=== PATIENT | male | born 1975 | race Caucasian/White ===

== ENCOUNTER 2017-09-08 10:03 | Emergency (ER) | payer OTHER, BC ==
--- NOTE | 2017-09-08 10:15 | EDM.PDOC ---
ED HPI GENERAL MEDICAL PROBLEM - General Chief Complaint: Upper Extremity Injury/Pain Stated Complaint: FELL OFF LADDER - 5 FT Time Seen by Provider: 09/08/17 10:15 - History of Present Illness INITIAL COMMENTS - FREE TEXT/NARRATIVE: 41-year-old male presents emergency room with a right forearm injury. Shortly before arrival the patient fell off a ladder landing on his right forearm. He has significant discomfort around his wrist. Patient denies any other injuries associated with this fall. Patient has chronic back problems but does not believe that this is worsened because of a fall. Patient denies any other symptoms at this point Right Wrist Pain Score (Numeric/FACES): 8 - Related Data Allergies Allergy/AdvReac Type Severity Reaction Status Date / Time No Known Allergies Allergy Verified 09/08/17 10:06 Home Meds: Home Meds Baclofen [Baclofen] 5 mg PO DAILY 09/08/17 [History] Celebrex. 09/08/17 [History] Hydrocodone/Acetaminophen [[place] 5-325 Tablet] 1 - 2 each PO Q6H PRN #30 tablet 09/08/17 [Rx] Past Medical History - Past Health History Medical/Surgical History: Denies Medical/Surgical History - Past Surgical History GI Surgical History: Reports: Appendectomy Social & Family History - Tobacco Use Smoking Status *Q: Current Every Day Smoker Years of Tobacco use: 15 Packs/Tins Daily: 1 - Alcohol Use Days Per Week of Alcohol Use: 0 - Recreational Drug Use Recreational Drug Use: No Review of Systems - Review of Systems Review Of Systems: See Below Constitutional: Reports: No Symptoms Eyes: Reports: No Symptoms Ears: Reports: No Symptoms Nose: Reports: No Symptoms Mouth/Throat: Reports: No Symptoms Respiratory: Reports: No Symptoms Cardiovascular: Reports: No Symptoms GI/Abdominal: Reports: No Symptoms Musculoskeletal: Reports: Other (Right wrist pain) Skin: Reports: No Symptoms Neurological: Reports: No Symptoms ED EXAM, GENERAL - Physical Exam Exam: See Below Exam Limited By: No Limitations General Appearance: Alert, No Apparent Distress Eye Exam: Bilateral Eye: Normal Inspection Ears: Normal External Exam, Normal Canal, Hearing Grossly Normal, Normal TMs Nose: Normal Inspection, Normal Mucosa, No Blood Throat/Mouth: Normal Inspection, Normal Lips, Normal Gums, Normal Oropharynx, Normal Voice, No Airway Compromise Head: Atraumatic, Normocephalic Neck: Normal Inspection, Supple, Non-Tender, Full Range of Motion. No: Limited Range of Motion, Lymphadenopathy (L), Lymphadenopathy (R), Tender Lateral, Tender Midline Respiratory/Chest: No Respiratory Distress, Lungs Clear, Normal Breath Sounds Cardiovascular: Regular Rate, Rhythm, No Edema, No Murmur GI/Abdominal: Normal Bowel Sounds, Soft, Non-Tender, Pelvis Stable Back Exam: Normal Inspection. No: CVA Tenderness (L), CVA Tenderness (R), Muscle Spasm, Vertebral Tenderness Extremities: Normal Inspection, Normal Range of Motion, Non-Tender, No Pedal Edema, Other (His right forearm has limited range of motion due to the right wrist injury remaining extremities are normal examination of right wrist shows no obvious dorsiflexion deformity neurovascular status of the hand is normal patient states it feels mildly numb compared to normal) Neurological: Alert, Oriented, Normal Cognition, No Motor/Sensory Deficits Psychiatric: Normal Affect, Normal Mood Skin Exam: Warm, Dry, Intact Lymphatic: No Adenopathy Course - Vital Signs Last Recorded V/S: Last Vital Signs Temp 37.0 C 09/08/17 12:18 Pulse 76 09/08/17 12:18 Resp 14 09/08/17 12:18 BP 152/91 H 09/08/17 12:18 Pulse Ox 96 09/08/17 12:18 - Orders/Labs/Meds Orders: Active Orders 24 hr Category Date Time Status Notify Provider [RC] ASDIRECTED Care 09/08/17 12:18 Active Oxygen Therapy [RC] ASDIRECTED Care 09/08/17 12:18 Active Pulse Oximetry [RC] ASDIRECTED Care 09/08/17 12:18 Active Vital Signs [RC] Q1HR Care 09/08/17 12:18 Active Meds: Medications Discontinued Medications Generic Name Dose Route Start Last Admin Trade Name Freq PRN Reason Stop Dose Admin Hydrocodone Bitart/Acetaminophen 1 tab 09/08/17 13:02 09/08/17 13:09 [place] 325-5 Mg PO 09/08/17 13:03 1 tab ONETIME ONE Administration Fentanyl 50 mcg 09/08/17 10:20 09/08/17 10:27 Sublimaze IVPUSH 09/08/17 10:21 50 mcg ONETIME ONE Administration Fentanyl Confirm 09/08/17 12:06 Sublimaze Administered 09/08/17 12:07 Dose 100 mcg .ROUTE .STK-MED ONE Lidocaine HCl Confirm 09/08/17 11:09 Xylocaine-Mpf 1% Administered 09/08/17 11:10 Dose 4 mls @ as directed .ROUTE .STK-MED ONE Lactated Ringer's Confirm 09/08/17 12:35 Ringers, Lactated Administered 09/08/17 12:36 Dose 1,000 mls @ as directed .ROUTE .STK-MED ONE Metoclopramide HCl Confirm 09/08/17 12:10 Reglan Administered 09/08/17 12:11 Dose 10 mg .ROUTE .STK-MED ONE Midazolam HCl Confirm 09/08/17 12:05 Versed 1 Mg/Ml Administered 09/08/17 12:06 Dose 2 mg .ROUTE .STK-MED ONE Propofol Confirm 09/08/17 11:10 Diprivan 20 Ml Administered 09/08/17 11:11 Dose 200 mg .ROUTE .STK-MED ONE - Re-Assessments/Exams Free Text/Narrative Re-Assessment/Exam: 09/08/17 10:54 X-rays in case reviewed with Dr. Dempsey, he believes this can be reduced emergency room. We will have things ready and attempt this. 09/08/17 13:37 Dr. Dempsey came in after anesthesia was ready. Assisted with procedural sedation satisfactory alignment was achieved and he was splinted in position post reduction films showed good anatomical alignment. Departure - Departure Time of Disposition: 13:39 Disposition: Home, Self-Care 01 Clinical Impression: Fracture, Colles, right, closed - Discharge Information Prescriptions: Hydrocodone/Acetaminophen [[place] 5-325 Tablet] 1 - 2 each PO Q6H PRN #30 tablet PRN Reason: Pain Referrals: PCP,None [Primary Care Provider] - Kendrick Dempsey MD [Physician] - Forms: ED Department Discharge Additional Instructions: Return to emergency room if any questions problems worsening symptoms. Follow up Dr. Dempsey's office Monday of next week September 15. Use the sling all the time. Return to the emergency room for recheck if you develop numbness or worsening pain in your arm. You been given [place]. Use as needed for pain if ibuprofen does not help. Take one or 2 every 6 hours. Allow 12 hours after using this medication before driving or returning to work. You received some very strong medications here in the emergency room do not drive for the next 24 hours.
[2017-09-08] MEDS ORDERED: fentaNYL 100 MCG/2 ML SDV IVPUSH ONE (10:20)
--- NOTE | 2017-09-08 11:04 | PCM.PREANE ---
Preanesthetic Assessment - Anesthesia/Transfusion/Family Hx Anesthesia History: Prior Anesthesia Without Reaction Family History of Anesthesia Reaction: No Transfusion History: No Prior Transfusion(s) Intubation History: Unknown - Review of Systems General: No Symptoms Pulmonary: No Symptoms (smoker: 1pack per day times 15 years) Cardiovascular: No Symptoms Gastrointestinal: No Symptoms Neurological: No Symptoms (chronic back problems) Other: Reports: None - Physical Assessment NPO Status Date: 09/08/17 NPO Status Time: 10:00 (coffee) Pulse: 76 O2 Sat by Pulse Oximetry: 100 Respiratory Rate: 20 Blood Pressure: 146/93 Temperature: 36.7 C Vital Signs: Last Vital Signs Temp 36.7 C 09/08/17 10:08 Pulse 76 09/08/17 10:08 Resp BP 146/93 H 09/08/17 10:08 Pulse Ox 100 09/08/17 10:08 Height: 1.78 m Weight: 72.575 kg ASA Class: 2E Mental Status: Alert & Oriented x3 Airway Class: Mallampati = 2 Dentition: Reports: Dentures Thyro-Mental Finger Breadths: 3 Mouth Opening Finger Breadths: 3 ROM/Head Extension: Full Lungs: Clear to Auscultation, Normal Respiratory Effort Cardiovascular: Regular Rate, Regular Rhythm, No Murmurs - Allergies Allergies/Adverse Reactions: Allergies Allergy/AdvReac Type Severity Reaction Status Date / Time No Known Allergies Allergy Verified 09/08/17 10:06 - Anesthesia Plan Pre-Op Medication Ordered: None - Acknowledgements Anesthesia Type Planned: MAC Pt an Appropriate Candidate for the Planned Anesthesia: Yes Alternatives and Risks of Anesthesia Discussed w Pt/Guardian: Yes Pt/Guardian Understands and Agrees with Anesthesia Plan: Yes PreAnesthesia Questionnaire - Past Health History Medical/Surgical History: Denies Medical/Surgical History - Past Surgical History GI Surgical History: Reports: Appendectomy - SUBSTANCE USE Smoking Status *Q: Current Every Day Smoker Tobacco Use Within Last Twelve Months: Cigarettes Days Per Week of Alcohol Use: 0 Recreational Drug Use History: No - HOME MEDS Home Medications: Home Meds Baclofen [Baclofen] 5 mg PO DAILY 09/08/17 [History] Celebrex. 09/08/17 [History] - CURRENT (IN HOUSE) MEDS Current Meds: Current Medications Discontinued Medications Fentanyl (Sublimaze) 50 mcg IVPUSH ONETIME ONE Stop: 09/08/17 10:21 Last Admin: 09/08/17 10:27 Dose: 50 mcg
[2017-09-08] MEDS ORDERED: Lidocaine 1% 4 ML ONE (11:09)
[2017-09-08] MEDS ORDERED: Propofol 200 MG/20 ML SDV ONE (11:10)
--- NOTE | 2017-09-08 11:12 | CR ---
Right hand: Three views of the right hand were obtained. Comparison: No previous study. Distal radial fracture is seen with posterior impaction. Joint spaces within the hand are preserved. No additional fracture or other bony abnormality is appreciated. Impression: 1. Distal radial fracture as noted previously. 2. Nothing acute is seen within the right hand. Diagnostic code #2
--- NOTE | 2017-09-08 11:13 | CR ---
Right forearm: Two views of the right forearm were obtained. Slightly comminuted distal radial fracture is seen. Posterior impaction is seen with dorsal tilt of the distal radial articular margin. Distal ulna appears intact. Soft tissue swelling is seen. No additional abnormality is seen within the forearm. Impression: 1. Distal radial fracture with posterior impaction. 2. Soft tissue swelling. Diagnostic code #3
[2017-09-08] MEDS ORDERED: Midazolam 1 MG/ML 2 ML SDV ONE (12:05)
[2017-09-08] MEDS ORDERED: fentaNYL 100 MCG/2 ML SDV ONE (12:06)
[2017-09-08] MEDS ORDERED: Metoclopramide 10 MG/2 ML SDV ONE (12:10)
--- NOTE | 2017-09-08 12:16 | PCM48HPAN ---
Post Anesthesia Note - EVALUATION WITHIN 48HRS OF ANESTHETIC Vital Signs in Normal Range: Yes Patient Participated in Evaluation: Yes Respiratory Function Stable: Yes Airway Patent: Yes Cardiovascular Function Stable: Yes Hydration Status Stable: Yes Pain Control Satisfactory: Yes Nausea and Vomiting Control Satisfactory: Yes Mental Status Recovered: Yes
[2017-09-08 12:30] VITALS: BP 152/91
[2017-09-08] MEDS ORDERED: Lactated Ringers 1,000 ML ONE (12:35)
[2017-09-08] MEDS ORDERED: Acetaminophen/HYDROcodone 325-5 MG Tab PO ONE (13:02)
--- NOTE | 2017-09-08 13:45 | CR ---
Right wrist: Two views of the right wrist were obtained. Comparison: Prior right wrist exam performed earlier on the same day (10:26 AM). Previously impacted radial fracture shows correction of alignment. Alignment currently appears near anatomic. Plaster cast or splint is in place. No additional abnormality is seen through the plaster splint or cast. Impression: 1. Reduction of previous fracture within the distal radius. Placement of plaster splint or cast. Diagnostic code #2
--- NOTE | 2017-11-07 09:24 | OR ---
DATE OF OPERATION: 09/08/2017 SURGEON: Kendrick Dempsey MD OPERATION PERFORMED: Closed reduction with splinting of right distal radial extra-articular fracture. PREOPERATIVE DIAGNOSIS: Right distal radius extra-articular fracture. POSTOPERATIVE DIAGNOSIS: Right distal radius extra-articular fracture. ANESTHESIA: Conscious sedation. ANESTHESIOLOGIST: Serena Bucio CRNA. STEWARD/STEWARDESS THIRD CLASS: None. COMPLICATIONS: None. CONDITION: Stable. DESCRIPTION OF PROCEDURE: The patient was identified in the Trauma Hand, where proper site was marked and identified. Informed consent was obtained. At this time, under conscious sedation, a closed reduction maneuver was done to the right distal radius with gross anatomic alignment. The patient subsequently had a well-padded sugar-tong splint applied and three-point molding was held until the cast was hardened right until the splint was hardened. At this time, postoperative radiographs showed a near anatomic reduction of the previously noted fracture. The patient was given a sling and told to follow up in roughly 1 weeks' time. ESTIMATED BLOOD LOSS: N/A MMODAL /[id number] [facility] SYSTEMCharlette
--- NOTE | 2017-11-07 09:31 | HP ---
DATE OF ADMISSION: 09/08/2017 HISTORY OF PRESENT ILLNESS: This is a 41-year-old [id number] male, who fell off a ladder this evening and landed on his right wrist. The patient had significant right wrist deformity and pain and subsequently sent to the emergency department. The patient denies any previous pain or injury to the right upper extremity before this. The patient has been on narcotics for other issues including other pain in the past. The patient denies any medical or surgical history other than appendectomy. The patient is a current smoker. He is right-hand dominant. 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 REVIEW OF SYSTEMS: Please see the emergency department review of systems. PHYSICAL EXAMINATION: GENERAL: Alert, in no acute distress. VITAL SIGNS: Stable, afebrile. Alert. The patient is in moderate distress secondary to right wrist pain. EXTREMITIES: There is visible deformity of the right wrist. The patient has no tenderness to palpation about the right elbow. He has full elbow flexion and extension. He does have positive crepitus both right wrist. He is able to flex and extend the IP joint of thumb, abduct and adduct fingers. He does have difficulty with opposition secondary to right wrist pain. He is neurovascularly intact to the radial and median nerve distribution with 2+ distal radial pulse. The patient has no tenderness to palpation of the right shoulder or clavicle. DIAGNOSTIC DATA: Radiographs reviewed showing a dorsally displaced Colles fracture of the right distal radius. ASSESSMENT: Right distal radial extra-articular fracture. PLAN: At this time, did discuss with the patient. At this time, I do believe that we can get it in anatomic alignment with just closed reduction. At this time, the risks benefits, complications, and alternatives were discussed with the patient and we will plan on conscious sedation with closed reduction of the right distal radius fracture with sugar-tong splinting. The patient will follow up in clinic to make sure that it has not displaced; if it is not, the patient will be placed in a long-arm cast. The patient is in agreement with this plan. MMODAL /[id number]
== END 2017-09-08 14:37 | disposition home or self-care (01) ==
LOC: JD.ED 10:03
DX: S52.531A Colles' fracture of right radius, initial encounter for closed fracture (principal); F17.210 Nicotine dependence, cigarettes, uncomplicated; Z79.899 Other long term (current) drug therapy; W11.XXXA Fall on and from ladder, initial encounter
CPT/HCPCS: 25605; 73090; 73100; 73130; 96374; 99284; A9270; J2250; J2765; J3010; J7120; 01810; 25565; 29125; J2704

== ENCOUNTER 2017-09-10 16:37 | Emergency (ER) | payer OTHER, BC ==
[2017-09-10 16:51] VITALS: BP 132/93
--- NOTE | 2017-09-10 18:04 | EDM.PDOC ---
ED HPI GENERAL MEDICAL PROBLEM - General Chief Complaint: Upper Extremity Injury/Pain Stated Complaint: RECHECK, STILL HAS PAIN FROM BROKEN WRIST Time Seen by Provider: 09/10/17 17:50 Source of Information: Reports: Patient History Limitations: Reports: No Limitations - History of Present Illness INITIAL COMMENTS - FREE TEXT/NARRATIVE: Patient is a 41-year-old male who presents to the ED complaining of right forearm pain. Patient states he fell from a ladder this past Monday and was evaluated in the ED with diagnosis of a Colles' fracture. This was reduced in the ER with plaster splint applied. Patient states over the course of the weekend the pain has remained constant non-manageable with the hydrocodone that was prescribed. He was instructed to take 2 tabs every 6 hours as needed for pain. He has not been able to sleep much. Has noticed swelling to his hand with no numbness or tingling present. Continues to have pain to the right wrist , forearm, and right shoulder. Has also has been taking ibuprofen on intermittent basis as well. Applied ice to the affected area maybe 3 times a day. Offers no additional complaints. Right Arm Pain Score (Numeric/FACES): 6 - Related Data Allergies Allergy/AdvReac Type Severity Reaction Status Date / Time No Known Allergies Allergy Verified 09/10/17 16:46 Home Meds: Home Meds Baclofen [Baclofen] 5 mg PO Q6H 09/08/17 [History] Celebrex. 1 cap PO Q6H 09/08/17 [History] Hydrocodone/Acetaminophen [[place] 5-325 Tablet] 1 - 2 each PO Q6H PRN #30 tablet 09/08/17 [Rx] Past Medical History - Past Health History Medical/Surgical History: Denies Medical/Surgical History - Past Surgical History GI Surgical History: Reports: Appendectomy Musculoskeletal Surgical History: Reports: Other (See Below) Other Musculoskeletal Surgeries/Procedures:: rt arm fracture--currently splinted Social & Family History - Family History Family Medical History: Noncontributory - Tobacco Use Smoking Status *Q: Current Every Day Smoker Years of Tobacco use: 23 Packs/Tins Daily: 0.5 - Caffeine Use Caffeine Use: Reports: Coffee - Alcohol Use Days Per Week of Alcohol Use: 0 - Recreational Drug Use Recreational Drug Use: No Review of Systems - Review of Systems Review Of Systems: ROS reveals no pertinent complaints other than HPI. ED EXAM, GENERAL - Physical Exam Exam: See Below Exam Limited By: No Limitations General Appearance: Alert, WD/WN, No Apparent Distress Ears: Hearing Grossly Normal Nose: Normal Inspection Throat/Mouth: Normal Voice, No Airway Compromise Neck: Normal Inspection, Supple Respiratory/Chest: No Respiratory Distress, No Accessory Muscle Use Cardiovascular: Normal Peripheral Pulses, Regular Rate, Rhythm Peripheral Pulses: 3+: Radial (R) Extremities: Other (Sugar tong plaster splint applied to the right wrist with Sudarshan wrap in place. Mild swelling to the hands in comparison to the left hand. No sensory deficits. Pain with movement of his fingers with decreased range of motion noted. No pain noted to the upper arm or shoulder.) Neurological: Alert, Oriented, CN II-XII Intact, Normal Cognition, No Motor/ Sensory Deficits Psychiatric: Normal Affect, Normal Mood Course - Vital Signs Last Recorded V/S: Last Vital Signs Temp 97.6 F 09/10/17 16:48 Pulse 88 09/10/17 16:48 Resp 14 09/10/17 16:48 BP 132/93 H 09/10/17 16:48 Pulse Ox 95 09/10/17 16:48 - Re-Assessments/Exams Free Text/Narrative Re-Assessment/Exam: 1755 Took the sudarshan wrap off and loosened the plaster splint. Will come back and evaluate see if this improves the patient's discomfort. If so Sudarshan wrap will be applied not as tight on initial placement. He has a follow-up with Dr. Dempsey this coming Monday. 09/10/17 19:06 Reassessment, patient states throbbing discomfort has resolved. Still has discomfort to his wrist where the fractures present. Of course will not be able to change that with fracture present. Reapplied the Sudarshan wrap with no sensory or motor deficits noted to the fingers different from initial admission to the ED. Patient will be discharged home with instructions as documented. Departure - Departure Time of Disposition: 19:07 Disposition: Home, Self-Care 01 Condition: Good Clinical Impression: Fracture of right wrist Qualifiers: Encounter type: initial encounter Fracture type: closed Qualified Code(s): S62.101A - Fracture of unspecified carpal bone, right wrist, initial encounter for closed fracture - Discharge Information Instructions: Wrist Fracture Treated With Immobilization, [id number], Pain Medicine Instructions, [id number] Referrals: Kendrick Dempsey MD [Primary Care Provider] - Forms: ED Department Discharge Additional Instructions: As discussed. Elevate the affected extremity when able to reduce any swelling and pain. Take hydrocodone one to 2 tabs every 6 hours as needed for severe pain. Suggest utilizing ibuprofen 600 mg every 6 hours as needed for pain as well. Apply ice to the affected area 4-6 times daily, 20 minutes in duration, do not place ice directly on the skin. Keep appointment with Dr. Dempsey as scheduled for this week. Return to ED for any new or worsening symptoms.
== END 2017-09-10 19:17 | disposition home or self-care (01) ==
LOC: SUPCPDRO 16:37 → JD.ED 16:37
DX: S52.531A Colles' fracture of right radius, initial encounter for closed fracture (principal); F17.210 Nicotine dependence, cigarettes, uncomplicated; W11.XXXA Fall on and from ladder, initial encounter
CPT/HCPCS: 99283

== ENCOUNTER 2017-11-03 11:24 | Emergency (ER) | payer BC, OTHER ==
[2017-11-03 11:37] VITALS: BP 135/95
--- NOTE | 2017-11-03 11:45 | EDM.PDOC ---
ED HPI GENERAL MEDICAL PROBLEM - General Chief Complaint: Upper Extremity Injury/Pain Stated Complaint: R ARM PAIN/SWOLLEN Time Seen by Provider: 11/03/17 11:40 Source of Information: Reports: Patient History Limitations: Reports: No Limitations - History of Present Illness INITIAL COMMENTS - FREE TEXT/NARRATIVE: 42-year-old male presents to the ED for evaluation of swelling wrist and hand right side. Patient reports she had a fractured distal radius treated conservatively in early September. On review of the notes he fell from a ladder about 5 feet onto his right wrist on September 08 with a resultant mild compression fracture of the distal radius. Alignment was felt to be good. He is being followed by orthopedic surgeon Dr. Dempsey. He reports that Worker's Compensation Board phone this morning and indicated that he stayed weeks into his injury and they're wondering when he will be ready to return to work. He states the hand and wrist remain very swollen and range of motion remains poor particularly with extension at the wrist abduction and abduction and flexion reduced from normal. Still having a significant amount of pain at the fracture site. He is wearing a splint on the wrist. On my initial assessment the hand is bluish in color simply because the splint is too tight. Onset Date: 09/01/17 (He believes has injury was around September 01.) Duration: Week(s): (Apparently it's been about 8 weeks since injury.) Location: Reports: Upper Extremity, Right (Right distal radius fracture. This is patient's history. I tried to review films but there are none available on the PACS system.) Quality: Reports: Ache, Throbbing, Other Severity: Moderate (Limited range of motion.) Improves with: Reports: None Worsens with: Reports: Movement Context: Reports: Trauma (Initially fell and fractured his distal radius.). Denies: Activity, Exercise, Lifting, Sick Contact Associated Symptoms: Denies: Confusion, Chest Pain, Cough, cough w sputum, Diaphoresis, Fever/Chills, Headaches, Loss of Appetite, Malaise, Nausea/Vomiting , Rash, Seizure, Shortness of Breath, Syncope Treatments FOOD PROCESSOR: Reports: Other (see below) (Celebrex.) Right Wrist Pain Score (Numeric/FACES): 5 - Related Data Allergies Allergy/AdvReac Type Severity Reaction Status Date / Time No Known Allergies Allergy Verified 11/03/17 11:37 Home Meds: Home Meds Celebrex. 1 cap PO Q6H 09/08/17 [History] Gabapentin [Neurontin] 100 mg PO BID #60 capsule 11/03/17 [Rx] oxyCODONE HCl/Acetaminophen [Percocet 5-325 mg Tablet] 1 - 2 each PO Q4H PRN # 20 tablet 11/03/17 [Rx] Past Medical History - Past Health History Medical/Surgical History: Denies Medical/Surgical History - Past Surgical History GI Surgical History: Reports: Appendectomy Musculoskeletal Surgical History: Reports: Other (See Below) Other Musculoskeletal Surgeries/Procedures:: rt arm fracture--currently splinted Social & Family History - Family History Family Medical History: Noncontributory - Tobacco Use Smoking Status *Q: Current Every Day Smoker Years of Tobacco use: 23 Packs/Tins Daily: 0.5 - Caffeine Use Caffeine Use: Reports: Coffee - Alcohol Use Days Per Week of Alcohol Use: 0 - Recreational Drug Use Recreational Drug Use: No - Living Situation & Occupation Living situation: Reports: Occupation: Employed (Currently off work due to fracture of his distal radius.) Review of Systems - Review of Systems Review Of Systems: See Below Constitutional: Denies: No Symptoms Eyes: Reports: No Symptoms Ears: Reports: No Symptoms Nose: Reports: No Symptoms Mouth/Throat: Reports: No Symptoms Respiratory: Reports: Cough Cardiovascular: Reports: No Symptoms (Occasional cough due to cigarette smoking. ) GI/Abdominal: Reports: No Symptoms Genitourinary: Reports: No Symptoms Musculoskeletal: Reports: Other (Wrist and hand pain right side 2 months) Skin: Reports: No Symptoms Neurological: Reports: No Symptoms Psychiatric: Reports: No Symptoms ED EXAM, GENERAL - Physical Exam Exam: See Below Exam Limited By: No Limitations General Appearance: Alert, WD/WN, Anxious, Mild Distress Peripheral Pulses: 3+: Brachial (R), Radial (L) Extremities: Other (Patient has a splint on his right hand and wrist that is obviously too tight. His hand is bluish in color due to poor venous drainage. The hand itself is twice as thick as normal due to edema from constriction of the blood vessels from the splint being too tight. He is usually followed by Dr. Dempsey but was unable to get into the clinic today. I have no x-rays on the PACS system on his wrist or hand. I will x-ray his hand and wrist today.) Course - Vital Signs Last Recorded V/S: Last Vital Signs Temp 37.1 C 11/03/17 11:33 Pulse 85 11/03/17 11:33 Resp 18 11/03/17 11:33 BP 135/95 H 11/03/17 11:33 Pulse Ox 98 11/03/17 11:33 - Orders/Labs/Meds Orders: Active Orders 24 hr Category Date Time Status Hand Comp Min 3V Rt [CR] Stat Exams 11/03/17 11:40 Taken Wrist Comp Min 3V Rt [CR] Stat Exams 11/03/17 11:41 Taken - Radiology Interpretation Free Text/Narrative:: 42-year-old male reports that he fell around the beginning of September and suffered a fracture of his distal right radius. He has been followed by Dr. Dempsey . Patient currently is in a short wrist splint which is too tight and causing venous compression and swelling of his dorsal hand and wrist. I will have x-rays of his hand and wrist carried out in the department as there are none in the PACS machine for me to be up to compare to. It is likely that his fractures healed but he does have limited flexion extension abduction and abduction at the wrist. This would be normal for being immobilized for 2 months. He reports Worker's Compensation Board is wondering when he might be able to return to work. He states at present he doesn't have range of motion and too much pain to return to work. Will assess his fracture for healing and suggest discontinuing the splint. Will refer to physiotherapy. - Re-Assessments/Exams Free Text/Narrative Re-Assessment/Exam: 11/03/17 12:38 x-rays of the right hand are normal with no fractures. X-rays of the wrist reveal a fracture through the distal aspect of the radius and medial radius with good position and alignment. Her lines are still easily visible. His hand is grossly swollen but this is secondary to the splint being applied to tightly. I therefore advised him for the most part to try and leave the splint off and try and get along without it so as to relieve the pressure on the venous system and the swelling will go down. Also to try keep his hand elevated at heart level as much as possible but not down by his side for the next 3-4 days until the swelling goes down. Noé in itself may be causing a lot of his throbbing pain. States it aches but not that it interferes with his ability to sleep. He has been going to physiotherapy basal been able to get him one time. It was canceled this last week so therefore is only gone once. He is going to seek alternative physiotherapy personnel. I did speak with Dr. Dempsey his orthopedic surgeon and he reviewed his x-rays and felt that they were coming along satisfactorily. I'm going to place the patient on gabapentin 100 mg twice daily and effort to relieve his pain and will give him a few Percocet tabs to take primarily at bedtime to alleviate pain so that he can sleep. He will he will follow-up with Dr. Dempsey next week in clinic as planned Departure - Departure Time of Disposition: 12:43 Disposition: Home, Self-Care 01 Condition: Fair Clinical Impression: Closed fracture of radius Qualifiers: Encounter type: subsequent encounter Radius location: distal Fracture morphology: Colles' Laterality: right Fracture healing: with routine healing Qualified Code(s): S52.531D - Colles' fracture of right radius, subsequent encounter for closed fracture with routine healing - Discharge Information Prescriptions: Gabapentin [Neurontin] 100 mg PO BID #60 capsule oxyCODONE HCl/Acetaminophen [Percocet 5-325 mg Tablet] 1 - 2 each PO Q4H PRN # 20 tablet PRN Reason: pain relief. Referrals: PCP,None [Primary Care Provider] - Forms: ED Department Discharge Additional Instructions: Evaluation the emergent today in regards to persistent pain post fracture distal right radius September 08. Presentation to the ED reveals marked swelling of the hand it is nearly 2 times thicker than normal with bluish discoloration. This is secondary to splint being too tight and compromising blood return to the heart from the hand. I blood is flowing and well but can't get out causing substantial swelling and discoloration. This is contributing to the throbbing pain in your hand and wrist. X-rays reveal that the fractures lines are still visible but there is evidence of healing and there is no change in position position of the fracture fragments is good. My suggestion is to try and go without the splint is much as possible and start to slowly regain range of motion of your wrist by movement and use. Since the pain is bad enough to keep you awaken night I will give you Percocet tablets one or 2 to be taken at bedtime to help sleep. Also suggest use of gabapentin 100 mg twice daily which will alleviate nerve pain in your wrist and hand. Take this first thing in the morning and one at bedtime. Follow-up with Dr. Dempsey next week as planned. - My Orders Last 24 Hours: My Active Orders 11/03/17 11:40 Hand Comp Min 3V Rt [CR] Stat 11/03/17 11:41 Wrist Comp Min 3V Rt [CR] Stat - Assessment/Plan Last 24 Hours: My Active Orders 11/03/17 11:40 Hand Comp Min 3V Rt [CR] Stat 11/03/17 11:41 Wrist Comp Min 3V Rt [CR] Stat
--- NOTE | 2017-11-03 14:15 | CR ---
Right hand: Four views of the right hand were obtained. Comparison: Prior wrist exam of 09/08/17. Fracture again seen within the distal radius. Fracture line is visible with mild endosteal callus. Joint spaces within the hand are maintained. No acute fracture or other bony abnormality is seen. Soft tissue swelling is noted. Impression: 1. Soft tissue swelling. 2. Fracture within the distal radius. Fracture line still visible with mild endosteal callus. 3. No additional abnormality is identified on right hand study. Diagnostic code #2
--- NOTE | 2017-11-03 14:15 | CR ---
Right wrist: Four views of the right wrist were obtained. Comparison: Prior wrist exam of 09/08/17. Distal radial fracture is noted. Fracture lines are still visible but slight endosteal callus is seen from prior exam. I do not see any definite acute fracture. Soft tissue swelling is noted. Impression: 1. Distal radial fracture showing mild endosteal callus with fracture line still visible. 2. No definite acute fracture is appreciated. Diagnostic code #2
== END 2017-11-03 13:17 | disposition home or self-care (01) ==
LOC: JD.ED 11:24
DX: S52.531D Colles' fracture of right radius, subsequent encounter for closed fracture with routine healing (principal); F17.210 Nicotine dependence, cigarettes, uncomplicated; W11.XXXD Fall on and from ladder, subsequent encounter
CPT/HCPCS: 29125; 73110-26-RT; 73110-RT; 73130-26-RT; 73130-RT; 99283-25

== ENCOUNTER 2017-12-14 08:28 | Day surgery (SDC) | payer OTHER ==
[~2017-12-14 08:28] MED LIST: Lactated Ringers 1,000 ML IV SCH; Lidocaine 1%/Sod Bicarbonate in NS 8.4% 1 ML Syringe IDERM PRN; Sodium Chloride 0.9% 10 ML Syringe FLUSH PRN
[2017-12-14] MEDS ORDERED: Bupivacaine 0.25% 10 ML SDV ONE (09:28)
[2017-12-14] MEDS ORDERED: Triamcinolone Acetonide 40 MG/ML 1 ML MDV ONE (09:28)
[2017-12-14] MEDS ORDERED: Propofol 200 MG/20 ML SDV ONE (09:39)
[2017-12-14] MEDS ORDERED: Midazolam 1 MG/ML 2 ML SDV ONE (09:39)
[2017-12-14] MEDS ORDERED: fentaNYL 100 MCG/2 ML SDV ONE (09:39)
[2017-12-14] MEDS ORDERED: Ketamine 500 mg/10 ML MDV ONE (09:40)
[2017-12-14] MEDS ORDERED: Lidocaine 1% 4 ML ONE (09:41)
[2017-12-14] MEDS ORDERED: Dexamethasone 4 MG/ML 5 ML MDV ONE (09:41)
--- NOTE | 2017-12-14 10:03 | PCM.PREANE ---
Preanesthetic Assessment - Procedure Proposed Procedure: Right wrist manipulation - Anesthesia/Transfusion/Family Hx Anesthesia History: Prior Anesthesia Without Reaction Family History of Anesthesia Reaction: No Transfusion History: No Prior Transfusion(s) Intubation History: Unknown Additional History: chronic low back pain - Review of Systems General: No Symptoms Pulmonary: No Symptoms Cardiovascular: No Symptoms Gastrointestinal: No Symptoms Neurological: No Symptoms Other: Reports: Depression - Physical Assessment NPO Status Date: 12/13/17 NPO Status Time: 22:30 O2 Sat by Pulse Oximetry: 98 Respiratory Rate: 16 Vital Signs: Last Vital Signs Temp 36.7 C 12/14/17 08:35 Pulse 86 12/14/17 08:35 Resp 16 12/14/17 08:35 BP 136/92 H 12/14/17 08:35 Pulse Ox 98 12/14/17 08:35 Height: 1.78 m Weight: 78.471 kg ASA Class: 2 Mental Status: Alert & Oriented x3 Airway Class: Mallampati = 1 Dentition: Reports: Normal Dentition Thyro-Mental Finger Breadths: 3 Mouth Opening Finger Breadths: 3 ROM/Head Extension: Full Lungs: Clear to Auscultation, Normal Respiratory Effort Cardiovascular: Regular Rate, Regular Rhythm - Allergies Allergies/Adverse Reactions: Allergies Allergy/AdvReac Type Severity Reaction Status Date / Time No Known Allergies Allergy Verified 12/13/17 13:14 - Blood Blood Available: No Product(s) Available: None - Anesthesia Plan Pre-Op Medication Ordered: None - Acknowledgements Anesthesia Type Planned: MAC Pt an Appropriate Candidate for the Planned Anesthesia: Yes Alternatives and Risks of Anesthesia Discussed w Pt/Guardian: Yes Pt/Guardian Understands and Agrees with Anesthesia Plan: Yes PreAnesthesia Questionnaire - Past Health History Medical/Surgical History: Denies Medical/Surgical History Cardiovascular History: Reports: None Respiratory History: Reports: None Gastrointestinal History: Reports: Other (See Below) Other Gastrointestinal History: exploratory abdominal surgery Genitourinary History: Reports: None CLIENT EXPERIENCE CONSULTANT History: Reports: None Musculoskeletal History: Reports: Back Pain, Chronic, Fracture Neurological History: Reports: None Psychiatric History: Reports: Depression Endocrine/Metabolic History: Reports: None Hematologic History: Reports: None Immunologic History: Reports: None Oncologic (Cancer) History: Reports: None Dermatologic History: Reports: None - Past Surgical History Head Surgeries/Procedures: Reports: None HEENT Surgical History: Reports: Oral Surgery Cardiovascular Surgical History: Reports: None Respiratory Surgical History: Reports: None GI Surgical History: Reports: Appendectomy Other GI Surgeries/Procedures: "Exploratory surgery" Female Surgical History: Reports: None Male Surgical History: Reports: None Endocrine Surgical History: Reports: None Neurological Surgical History: Reports: None Musculoskeletal Surgical History: Reports: Other (See Below) Other Musculoskeletal Surgeries/Procedures:: rt arm fracture--currently splinted Oncologic Surgical History: Reports: None - SUBSTANCE USE Smoking Status *Q: Current Every Day Smoker Tobacco Use Within Last Twelve Months: Cigarettes Days Per Week of Alcohol Use: 0 Recreational Drug Use History: No - HOME MEDS Home Medications: Home Meds Baclofen 10 mg PO TID PRN 12/13/17 [History] Celecoxib 200 mg PO DAILY 12/13/17 [History] Gabapentin [Gralise] 600 mg PO TID 12/13/17 [History] Sertraline [Zoloft] 100 mg PO DAILY 12/13/17 [History] Acetaminophen [Tylenol Extra Strength] 1 - 2 tab PO Q6H PRN #0 12/14/17 [Rx] Acetaminophen/HYDROcodone [Sidney 325-5 MG] 1 - 2 tab PO Q6H PRN #30 tablet 12/14 [Rx] Ibuprofen 1 - 3 tab PO Q6H PRN #0 12/14/17 [Rx] - CURRENT (IN HOUSE) MEDS Current Meds: Current Medications Lactated Ringer's (Ringers, Lactated) 1,000 mls @ 125 mls/hr IV ASDIRECTED TIFFANIE Last Admin: 12/14/17 08:45 Dose: 125 mls/hr Lidocaine/Sodium Bicarbonate (Buffered Lidocaine 1% In Ns 8.4%) 0.25 ml IDERM ONETIME PRN PRN Reason: Prior to IV Start Last Admin: 12/14/17 08:45 Dose: 0.25 ml Sodium Chloride (Saline Flush) 10 ml FLUSH ASDIRECTED PRN PRN Reason: Keep Vein Open Discontinued Medications Bupivacaine HCl (Sensorcaine-Mpf 0.25%) Confirm Administered Dose 10 ml .ROUTE .STK-MED ONE Stop: 12/14/17 09:29 Dexamethasone (Dexamethasone) Confirm Administered Dose 20 mg .ROUTE .STK-MED ONE Stop: 12/14/17 09:42 Fentanyl (Sublimaze) Confirm Administered Dose 100 mcg .ROUTE .STK-MED ONE Stop: 12/14/17 09:40 Lidocaine HCl (Xylocaine-Mpf 1%) Confirm Administered Dose 4 mls @ as directed .ROUTE .STK-MED ONE Stop: 12/14/17 09:42 Ketamine HCl (Ketalar) Confirm Administered Dose 500 mg .ROUTE .STK-MED ONE Stop: 12/14/17 09:41 Midazolam HCl (Versed 1 Mg/Ml) Confirm Administered Dose 2 mg .ROUTE .STK-MED ONE Stop: 12/14/17 09:40 Propofol (Diprivan 20 Ml) Confirm Administered Dose 200 mg .ROUTE .STK-MED ONE Stop: 12/14/17 09:40 Triamcinolone Acetonide (Kenalog-40) Confirm Administered Dose 40 mg .ROUTE .STK -MED ONE Stop: 12/14/17 09:29
--- NOTE | 2017-12-14 10:20 | PCM48HPAN ---
Post Anesthesia Note - EVALUATION WITHIN 48HRS OF ANESTHETIC Vital Signs in Normal Range: Yes Patient Participated in Evaluation: Yes Respiratory Function Stable: Yes Airway Patent: Yes Cardiovascular Function Stable: Yes Hydration Status Stable: Yes Pain Control Satisfactory: Yes Nausea and Vomiting Control Satisfactory: Yes Mental Status Recovered: Yes Pulse Rate: 85 SaO2: 96 Resp Rate: 16 Temperature: 36.8 C Blood Pressure: 148/98 - COMMENTS/OBSERVATIONS Free Text/Narrative:: no anesthesia complications noted
[2017-12-14 10:21] VITALS: BP 148/98
--- NOTE | 2017-12-15 10:00 | CR ---
Right wrist: Multiple fluoroscopic spot views were obtained of the right wrist utilizing C-arm device. Comparison: Prior right wrist exam of 11/03/17. Distal radial fracture is noted. No change in alignment is seen during manipulation of the wrist. Fluoroscopy time is given as 9.3 seconds. Impression: 1. Findings as noted above. Diagnostic code #2
--- NOTE | 2017-12-22 17:33 | PCM.OPNOTE ---
- General Post-Op/Procedure Note Date of Surgery/Procedure: 12/14/17 Operative Procedure(s): right wrist manipulation under anesthesia with intra- articular right wrist injection Pre Op Diagnosis: arthrofibrosis right wrist s/p right distal radius fracture Post-Op Diagnosis: same Anesthesia Technique: MAC Primary Surgeon: Kendrick Dempsey Anesthesia Provider: Jerad Hanson EBL in mLs: 0 Complications: None Condition: Good
--- NOTE | 2017-12-22 18:12 | OR ---
DATE OF OPERATION: 12/14/2017 SURGEON: Kendrick Dempsey MD OPERATION PERFORMED: Right wrist manipulation under anesthesia with intra- articular right wrist injection. 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 ANESTHESIA: MAC. ANESTHESIA PROVIDER: Jerad Hanson CRNA. CHEMICAL PREPARER: None. ESTIMATED BLOOD LOSS: Not applicable. COMPLICATIONS: None. CONDITION: Stable. DESCRIPTION OF PROCEDURE: The patient was identified in the preop holding area. The operative site was marked and identified by the surgeon. The patient was taken back to the operative theater where after adequate anesthesia, the patient had pre manipulation motion noted at roughly 45 degrees of flexion and extension and roughly 10 and 20 degrees of radioulnar deviation. At this time, manipulation was done. The patient was able to get to 75 degrees of wrist flexion and extension. He had full pronation and supination and roughly 30 degrees of both the radial and ulnar deviation. There was no block to motion. C-arm fluoroscopy was utilized during the entirety of the procedure and the fracture site showed good stability with no signs of motion whatsoever. At this time, after the manipulation was completed, 1 mL of 40 mg Kenalog, 2 mL of 0.25% Marcaine were injected into the patient's right carpus. The patient did tolerate this well and will follow up with therapy tomorrow. MMODAL /[id number]
== END 2017-12-14 10:53 | disposition home or self-care (01) ==
LOC: JD.SDS 08:28
PROVIDERS: ATTEND Orthopaedic Surgery
DX: M24.631 Ankylosis, right wrist (principal); F17.210 Nicotine dependence, cigarettes, uncomplicated; F32.9 Major depressive disorder, single episode, unspecified; Z79.899 Other long term (current) drug therapy
CPT/HCPCS: 25259; 76000; J1100; J2250; J3010; J3301; J7120; 01820; J2704

== ENCOUNTER 2018-01-25 07:22 | Emergency (ER) | payer BC, OTHER ==
[2018-01-25 07:30] VITALS: BP 107/76
[2018-01-25] MEDS ORDERED: Famotidine 20 MG/2 ML SDV IVPUSH ONE (07:39)
[2018-01-25] MEDS ORDERED: diphenhydrAMINE 50 MG/ML SDV IVPUSH ONE (07:39)
[2018-01-25] MEDS ORDERED: Albuterol/Ipratropium 3.0-0.5 MG/3 ML Neb Soln NEB ONE (07:40)
[2018-01-25] MEDS ORDERED: methylPREDNISolone Sodium Succinate 125 MG/2 ML SDV IVPUSH ONE (07:40)
--- NOTE | 2018-01-25 07:41 | EDM.PDOC ---
ED HPI GENERAL MEDICAL PROBLEM - General Chief Complaint: Allergic Reaction Stated Complaint: POSSIBLE ALLERGIC REACTION Time Seen by Provider: 01/25/18 07:36 Source of Information: Reports: Patient History Limitations: Reports: No Limitations - History of Present Illness INITIAL COMMENTS - FREE TEXT/NARRATIVE: 42-year-old male attends the ED stating that when he was at work this morning and placing chlorine tablets into a tank and was adding water with a hose when he suddenly developed generalized itching , generalized erythema , swelling around his upper and lower eyelids and shortness of breath with wheezing. 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 Of note he has been on antibiotic Cipro 500 mg twice daily for the last 12 days. He states his last tablet was last evening. He states however when he went to work he was fine. Patient does smoke a pack to pack and a half of cigarettes per day. Currently has mild cough. Denies sore throat. Voice is not hoarse. No previous known similar allergic response to anything. Onset: Today Onset Date: 01/25/18 Onset Time: 07:00 Duration: Minutes: Location: Reports: Generalized Quality: Reports: Other Severity: Moderate (Generalized erythema and pruritus.) Improves with: Reports: None Worsens with: Reports: None Context: Reports: Other (Was using chlorine tablets dissolving them in water with a water hose. He states he really didn't smell any chlorine gas or fumes. The next thing he knew he was breaking out in severe itch and redness everywhere and having trouble breathing.). Denies: Activity, Exercise, Lifting , Sick Contact Associated Symptoms: Reports: Cough, Rash. 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.) - Related Data Allergies Allergy/AdvReac Type Severity Reaction Status Date / Time No Known Allergies Allergy Verified 12/13/17 13:14 Home Meds: Home Meds Baclofen 10 mg PO TID PRN 12/13/17 [History] Celecoxib 200 mg PO DAILY 12/13/17 [History] Gabapentin [Gralise] 600 mg PO TID 12/13/17 [History] Sertraline [Zoloft] 100 mg PO DAILY 12/13/17 [History] Acetaminophen [Tylenol Extra Strength] 1 - 2 tab PO Q6H PRN #0 12/14/17 [Rx] Ibuprofen 1 - 3 tab PO Q6H PRN #0 12/14/17 [Rx] Doxycycline [Vibramycin] 100 mg PO DAILY #42 cap 01/25/18 [Rx] predniSONE [Deltasone] 20 mg PO BID #6 tablet 01/25/18 [Rx] Past Medical History - Past Health History Medical/Surgical History: Denies Medical/Surgical History Cardiovascular History: Reports: None Respiratory History: Reports: None Gastrointestinal History: Reports: Other (See Below) Other Gastrointestinal History: exploratory abdominal surgery Genitourinary History: Reports: None LOCATOR History: Reports: None Musculoskeletal History: Reports: Back Pain, Chronic, Fracture Neurological History: Reports: None Psychiatric History: Reports: Depression Endocrine/Metabolic History: Reports: None Hematologic History: Reports: None Immunologic History: Reports: None Oncologic (Cancer) History: Reports: None Dermatologic History: Reports: None - Past Surgical History Head Surgeries/Procedures: Reports: None HEENT Surgical History: Reports: Oral Surgery Cardiovascular Surgical History: Reports: None Respiratory Surgical History: Reports: None GI Surgical History: Reports: Appendectomy Other GI Surgeries/Procedures: "Exploratory surgery" Female Surgical History: Reports: None Male Surgical History: Reports: None Endocrine Surgical History: Reports: None Neurological Surgical History: Reports: None Musculoskeletal Surgical History: Reports: Other (See Below) Other Musculoskeletal Surgeries/Procedures:: rt arm fracture--currently splinted Oncologic Surgical History: Reports: None Social & Family History - Family History Family Medical History: Noncontributory - Tobacco Use Smoking Status *Q: Current Every Day Smoker Years of Tobacco use: 23 Packs/Tins Daily: 0.5 - Caffeine Use Caffeine Use: Reports: Coffee - Alcohol Use Days Per Week of Alcohol Use: 0 - Recreational Drug Use Recreational Drug Use: No - Living Situation & Occupation Living situation: Reports: Occupation: Employed (Currently off work due to fracture of his distal radius.) ED ROS ALLERGIC REACTION - Review of Systems Review Of Systems: See Below Constitutional: Reports: No Symptoms HEENT: Reports: No Symptoms Respiratory: Reports: Shortness of Breath, Wheezing (Wheezing appreciated this morning with the onset of allergic symptoms.), Cough, Sputum (Has a smoker's cough.). Denies: Hemoptysis ( Occasional sputum production.) Cardiovascular: Reports: No Symptoms Endocrine: Reports: No Symptoms GI/Abdominal: Reports: No Symptoms : Reports: No Symptoms Musculoskeletal: Reports: Back Pain (Chronic low back pain) Skin: Reports: Other Neurological: Reports: No Symptoms (Developed generalized erythema generalized itching this morning.) Psychiatric: Reports: No Symptoms Hematologic/Lymphatic: Reports: No Symptoms Immunologic: Reports: No Symptoms ED EXAM GENERAL NO PERIP PULSE - Physical Exam Exam: See Below Exam Limited By: No Limitations General Appearance: Moderate Distress, Other (Patient does have generalized erythema particularly of his face upper extremities anterior chest and split slightly on his upper back. Complains of generalized pruritus in this same distribution without any obvious hives. He is exhibiting swelling of both the upper and lower eyelids.) Eye Exam: Bilateral Eye: Conjunctival Injection (None.), Periorbital Changes Ears: Normal TMs (Filling of both the upper and lower eyelids bilaterally.), Other (Ears are erythematous.) Nose: Other (Mild rhinitis) Throat/Mouth: Other (Pharynx is mildly erythematous I believe from cigarette smoking. The uvula or floor the mouth are normal.) Head: Atraumatic, Normocephalic Neck: Normal Inspection, Supple, Non-Tender, Full Range of Motion. No: Lymphadenopathy (L), Lymphadenopathy (R) Respiratory/Chest: Respiratory Distress, Decreased Breath Sounds, Wheezing ( Mild tachypnea. Generalized expiratory wheezing throughout all lung sewell.) Cardiovascular: Normal Peripheral Pulses, Regular Rate, Rhythm, No Gallop, No Murmur (Mildly decreased breath sounds to the lower 20% of lung sewell bilaterally.), Other (Periorbital edema involving both upper and lower eyelids bilaterally.) GI/Abdominal: Normal Bowel Sounds, Soft, Non-Tender, No Organomegaly Back Exam: Normal Inspection, Full Range of Motion. No: CVA Tenderness (L), CVA Tenderness (R) Extremities: Normal Inspection, Normal Range of Motion, Non-Tender, No Pedal Edema Neurological: Alert, Oriented, CN II-XII Intact, Normal Cognition Psychiatric: Normal Affect, Normal Mood Skin Exam: Erythema (Generalized erythema particularly of his face neck anterior chest slightly on his upper back both upper extremities no hives identified.) Course - Vital Signs Last Recorded V/S: Last Vital Signs Temp 36.6 C 01/25/18 07:27 Pulse 125 H 01/25/18 07:27 Resp 18 01/25/18 07:27 BP 107/76 01/25/18 07:27 Pulse Ox 93 L 01/25/18 07:47 - Orders/Labs/Meds Orders: Active Orders 24 hr Category Date Time Status RT Aerosol Therapy [RC] ASDIRECTED Care 01/25/18 07:40 Active Meds: Medications Discontinued Medications Generic Name Dose Route Start Last Admin Trade Name Freq PRN Reason Stop Dose Admin Albuterol/Ipratropium 3 ml 01/25/18 07:40 01/25/18 07:47 Duoneb 3.0-0.5 Mg/3 Ml NEB 01/25/18 07:41 3 ml ONETIME ONE Administration Diphenhydramine HCl 50 mg 01/25/18 07:39 01/25/18 07:49 Benadryl IVPUSH 01/25/18 07:40 50 mg ONETIME ONE Administration Famotidine 20 mg 01/25/18 07:39 01/25/18 07:49 Pepcid IVPUSH 01/25/18 07:40 20 mg ONETIME ONE Administration Sodium Chloride 1,000 mls @ 500 mls/hr 01/25/18 07:45 01/25/18 07:49 Normal Saline IV 500 mls/hr ASDIRECTED TIFFANIE Administration Methylprednisolone Sodium Succinate 125 mg 01/25/18 07:40 01/25/18 07:50 Solu-Medrol IVPUSH 01/25/18 07:41 125 mg ONETIME ONE Administration - Radiology Interpretation Free Text/Narrative:: 42-year-old male presents to the ED with acute onset of allergic symptoms after dissolving chlorine tablets with the use of a water hose. He states is the first time is actually done it in this workplace but he's done many times in the past at another job sites. It's really didn't appreciate any chlorine gases or fumes. Shortly after dissolving the tablets he developed generalized pruritus swelling of his upper and lower eyelids and some trouble breathing with wheezing. He therefore came to the hospital. Said no previous similar allergic response. Of note the patient has been on Cipro 500 twice a day for prostatitis for the last 12 days with his labs tablet being taken last evening. Therefore there is a possibility of drug eruption as a cause of his current symptoms versus chlorine exposure since he didn't ingest any of this. Chlorine gas could it made him wheezy and tight in the chest but on does not usually produce generalized erythema or pruritus. Treatment will be IV fluids at normal saline 500 mils per hour. Given Cymetra 125 mg IV with Pepcid 20 mg IV and Benadryl 50 mg IV to relieve acute allergic response. We'll also give him DuoNeb neb treatment. - Re-Assessments/Exams Free Text/Narrative Re-Assessment/Exam: 01/25/18 08:00: Chest is much clearer on examination with no wheezing at present. His erythema is also starting to fade. He is fairly drowsy from the medication at this time. 01/25/18 08:49 generalized erythematous for the most part resolved. He's got some erythema mid forehead still some mild swelling around both upper and lower eyelids. Lungs are clear to auscultation. I still question whether or not this is an allergic reaction to Cipro versus chlorine reaction which would be very atypical. I'm therefore going to stop the Cipro and replaced with doxycycline 100 mg twice daily for prostatitis for another 3 weeks. He is quite drowsy from the effect of Benadryl and other medications today and therefore he will be sent home from work tentatively be able to return to work tomorrow. I am going to place him on prednisone 20 mg twice a day morning and supper for 3 days to prevent recurrence of allergic reaction. Particularly if this is drug-induced. Departure - Departure Time of Disposition: 08:50 Disposition: Home, Self-Care 01 Condition: Fair Clinical Impression: Allergic reaction caused by a drug Qualifiers: Encounter type: initial encounter Qualified Code(s): T78.40XA - Allergy, unspecified, initial encounter - Discharge Information Prescriptions: Doxycycline [Vibramycin] 100 mg PO DAILY #42 cap predniSONE [Deltasone] 20 mg PO BID #6 tablet Referrals: Evonne Figueroa PA-C [Primary Care Provider] - Forms: ED Department Discharge, ED Return to Work/School Form Additional Instructions: Evaluation in the emergency room this morning in regards to development of generalized rash with redness of the skin and generalized itching with associated swelling around the eyes compatible with an acute allergic reaction. This is not exactly clear. As you we discussed your fine when he went to work and shortly after starting to use clonidine tablets and dissolving them with water hose you started to develop these symptoms. This would be an atypical reaction to chlorine fumes. Usually would cause you to have respiratory distress with wheezing which you did have to some degree but never seen it cause the skin to become reddened and inflamed and itchy. I am more concerned this may be a drug eruption just was coincidental with use of chlorine tablets this morning. This is because you've been on Cipro for the last 12 days for prostaglandin infection and usually about 10-12 days into a treatment plan that you develop an allergic response to the antibiotic. You're treated with medicines to alleviate the acute allergic response with Pepcid, Solu-Medrol, and Benadryl 50 mg IV. This major quite drowsy as it interacts with your other medications. He will have to be off work the rest of today. Told to sleep for the next 4-6 hours. Just discontinuing the Cipro completely. Replace it with doxycycline 100 mg twice daily for the next 3 weeks to eradicate prostate gland infection. Prednisone 20 mg twice daily for the next 3 days with the first tablet to be taken at suppertime tonight. Prevent recurrence of allergic response. Tentatively she'll build return to work tomorrow. - My Orders Last 24 Hours: My Active Orders 01/25/18 07:40 RT Aerosol Therapy [RC] ASDIRECTED - Assessment/Plan Last 24 Hours: My Active Orders 01/25/18 07:40 RT Aerosol Therapy [RC] ASDIRECTED
[2018-01-25] MEDS ORDERED: Sodium Chloride 0.9% 1,000 ML IV SCH (07:45)
== END 2018-01-25 09:03 | disposition home or self-care (01) ==
LOC: JD.ED 07:22
DX: L29.9 Pruritus, unspecified (principal); R06.02 Shortness of breath; T50.995A Adverse effect of other drugs, medicaments and biological substances, initial encounter; F17.210 Nicotine dependence, cigarettes, uncomplicated; Z79.899 Other long term (current) drug therapy
CPT/HCPCS: 94640; 96361; 96374; 96375; 99285; J1200; J2930; J7040; 99284

== ENCOUNTER 2019-08-02 21:05 | Emergency (ER) | payer BC ==
[2019-08-02 21:14] VITALS: BP 151/103; PULSE 95
[2019-08-02] MEDS ORDERED: Lidocaine 1% 10 ML MDV INJECT ONE (21:19)
--- NOTE | 2019-08-02 21:51 | EDM.PDOC ---
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 Mild pain. No focal weakness. Last DT about 2 yrs ago. Right Hand Pain Score (Numeric/FACES): 5 - Related Data Allergies Allergy/AdvReac Type Severity Reaction Status Date / Time No Known Allergies Allergy Verified 08/02/19 21:14 Home Meds: Home Meds Baclofen 10 mg PO ASDIRECTED 12/13/17 [History] Gabapentin [Gralise] 600 mg PO TID 12/13/17 [History] Dextroamphetamine/Amphetamine [Adderall] 25 mg PO DAILY 08/02/19 [History] Pantoprazole Sodium [Protonix] 40 mg PO DAILY 08/02/19 [History] Past Medical History - Past Health History Medical/Surgical History: Denies Medical/Surgical History Cardiovascular History: Reports: None Respiratory History: Reports: None Gastrointestinal History: Reports: GERD, Other (See Below) Other Gastrointestinal History: exploratory abdominal surgery Genitourinary History: Reports: None 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 Neurological History: Reports: None Psychiatric History: Reports: ADD, Depression Endocrine/Metabolic History: Reports: None Hematologic History: Reports: None Immunologic History: Reports: None Oncologic (Cancer) History: Reports: None Dermatologic History: Reports: None - Past Surgical History Head Surgeries/Procedures: Reports: None HEENT Surgical History: Reports: Oral Surgery Cardiovascular Surgical History: Reports: None Respiratory Surgical History: Reports: None GI Surgical History: Reports: Appendectomy Other GI Surgeries/Procedures: "Exploratory surgery" Male Surgical History: Reports: None Endocrine Surgical History: Reports: None Neurological Surgical History: Reports: None Other Neurological Surgeries/Procedures: receives epidural injections Musculoskeletal Surgical History: Reports: Other (See Below) Other Musculoskeletal Surgeries/Procedures:: Right index finger surgery. Oncologic Surgical History: Reports: None Social & Family History - Family History Family Medical History: Noncontributory - Tobacco Use Smoking Status *Q: Current Every Day Smoker Years of Tobacco use: 20 Packs/Tins Daily: 1 - Caffeine Use Caffeine Use: Reports: Coffee - Recreational Drug Use Recreational Drug Use: No - Living Situation & Occupation Living situation: Reports: Occupation: Employed (Currently off work due to fracture of his distal radius.) ED ROS GENERAL - Review of Systems Review Of Systems: See Below Constitutional: Reports: No Symptoms HEENT: Reports: No Symptoms Respiratory: Reports: No Symptoms Cardiovascular: Reports: No Symptoms GI/Abdominal: Denies: Nausea, Vomiting Musculoskeletal: Reports: Other (2 lac injuries R hand) Neurological: Denies: Numbness, Tingling, Weakness ED EXAM, SKIN/RASH Exam: See Below General Appearance: Alert Head: Atraumatic Neck: Supple Respiratory/Chest: No Respiratory Distress Extremities: Non-Tender (no bony tenderness), Other (2 cm lac dorsal, proximal R thumb, moderately deep, 2 cm lac web space of between thumb and index finger , shallow but gaping) Neurological: No Motor/Sensory Deficits Skin: Warm, Dry ED SKIN PROCEDURES - Laceration/Wound Repair Right Dorsal Hand Appearance: Linear Distal NVT: Neuro & Vascular Intact Anesthetic Type: Local Local Anesthesia - Lidocaine (Xylocaine): 1% Plain Exploration/Debridement/Repair: Wound Explored Closed with: Sutures Lac/Wound length In cm: 4 (2 cm and 2nd lac also 2 cm) Suture Size: 3-0 # of Sutures: 8 Course - Vital Signs Last Recorded V/S: Last Vital Signs Temp 96.6 F 08/02/19 21:11 Pulse 95 08/02/19 21:11 Resp 16 08/02/19 21:11 BP 151/103 H 08/02/19 21:11 Pulse Ox 96 08/02/19 21:11 - Orders/Labs/Meds Meds: Medications Discontinued Medications Generic Name Dose Route Start Last Admin Trade Name Mkq PRN Reason Stop Dose Admin Lidocaine HCl 10 ml 08/02/19 21:19 08/02/19 22:11 Xylocaine 1% INJECT 08/02/19 21:20 10 ml ONETIME ONE Administration Departure - Departure Time of Disposition: 21:49 Disposition: Home, Self-Care 01 Condition: Fair Clinical Impression: Thumb laceration Qualifiers: Encounter type: initial encounter Damage to nail status: without damage Foreign body presence: without foreign body Laterality: right Qualified Code(s) : S61.011A - Laceration without foreign body of right thumb without damage to nail, initial encounter - Discharge Information Referrals: Evonne Figueroa PA-C [Primary Care Provider] - Forms: ED Department Discharge Additional Instructions: Laceration care instr. Stitches out in about 10 days, those can be removed at our [facility], call [phone] for appointment. Have rechecked any sign of infection.
== END 2019-08-02 22:31 | disposition home or self-care (01) ==
LOC: JD.ED 21:05
DX: S61.011A Laceration without foreign body of right thumb without damage to nail, initial encounter (principal); F17.210 Nicotine dependence, cigarettes, uncomplicated; W20.8XXA Other cause of strike by thrown, projected or falling object, initial encounter; Y93.89 Activity, other specified
CPT/HCPCS: 12002; 99282; J2001

== ENCOUNTER 2019-10-18 12:06 | Emergency (ER) | payer OTHER, BC ==
[2019-10-18] MEDS ORDERED: Acetaminophen/HYDROcodone 325-5 MG Tab PO ONE (12:58)
[2019-10-18 13:02] VITALS: BP 130/115; PULSE 107
--- NOTE | 2019-10-18 13:07 | EDM.PDOC ---
ED HPI GENERAL MEDICAL PROBLEM - General Chief Complaint: Lower Extremity Injury/Pain Stated Complaint: KNEE SURG 10/11/19 Time Seen by Provider: 10/18/19 12:46 Source of Information: Reports: Patient History Limitations: Reports: No Limitations - History of Present Illness INITIAL COMMENTS - FREE TEXT/NARRATIVE: The patient presents with left leg pain and swelling. He had an ACL reconstruction done by Alicia at [facility] in [place] on the . He went home and was doing good but the swelling has not been going down and he has more pain over the past few days. They cannot get him in until of next week. He did move his leg fast the day after surgery. That is the only time he thinks he may have done anything to injure his knee. He has no fever or chills. He has no cough, chest pain, shortness of breath, abdominal pain, nausea or vomiting. Onset: Gradual Duration: Day(s): Location: Reports: Lower Extremity, Left (knee) Quality: Reports: Sharp Severity: Moderate Improves with: Reports: Immobilization Worsens with: Reports: Movement Context: Denies: Trauma Associated Symptoms: Reports: No Other Symptoms Left Knee Pain Score (Numeric/FACES): 10 - Related Data Allergies Allergy/AdvReac Type Severity Reaction Status Date / Time No Known Allergies Allergy Verified 08/02/19 21:14 Home Meds: Home Meds Baclofen 20 mg PO TID PRN 12/13/17 [History] Gabapentin [Gralise] 600 mg PO BID 12/13/17 [History] Dextroamphetamine/Amphetamine [Adderall] 25 mg PO DAILY 08/02/19 [History] Hydrocodone/Acetaminophen [Hydrocodon-Acetaminophen 5-325] 1 - 2 each PO Q6HR PRN #20 tablet 10/18/19 [Rx] LORazepam [Ativan] 1 mg PO BEDTIME PRN #6 tablet 10/18/19 [Rx] Past Medical History - Past Health History Medical/Surgical History: Denies Medical/Surgical History Cardiovascular History: Reports: None Respiratory History: Reports: None Gastrointestinal History: Reports: GERD, Other (See Below) Other Gastrointestinal History: exploratory abdominal surgery Genitourinary History: Reports: None 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 Neurological History: Reports: None Psychiatric History: Reports: ADD, Depression Endocrine/Metabolic History: Reports: None Hematologic History: Reports: None Immunologic History: Reports: None Oncologic (Cancer) History: Reports: None Dermatologic History: Reports: None - Past Surgical History Head Surgeries/Procedures: Reports: None HEENT Surgical History: Reports: Oral Surgery Cardiovascular Surgical History: Reports: None Respiratory Surgical History: Reports: None GI Surgical History: Reports: Appendectomy Other GI Surgeries/Procedures: "Exploratory surgery" Male Surgical History: Reports: None Endocrine Surgical History: Reports: None Neurological Surgical History: Reports: None Other Neurological Surgeries/Procedures: receives epidural injections Musculoskeletal Surgical History: Reports: Other (See Below) Other Musculoskeletal Surgeries/Procedures:: Right index finger surgery. Oncologic Surgical History: Reports: None Social & Family History - Family History Family Medical History: Noncontributory - Tobacco Use Smoking Status *Q: Never Smoker - Caffeine Use Caffeine Use: Reports: Coffee - Living Situation & Occupation Living situation: Reports: Occupation: Employed (Currently off work due to fracture of his distal radius.) Review of Systems - Review of Systems Review Of Systems: See Below Constitutional: Reports: No Symptoms Eyes: Reports: No Symptoms Ears: Reports: No Symptoms Nose: Reports: No Symptoms Mouth/Throat: Reports: No Symptoms Respiratory: Reports: No Symptoms Cardiovascular: Reports: No Symptoms GI/Abdominal: Reports: No Symptoms Genitourinary: Reports: No Symptoms Musculoskeletal: Reports: No Symptoms ED EXAM, GENERAL - Physical Exam Exam: See Below Exam Limited By: No Limitations General Appearance: Alert, No Apparent Distress Ears: Normal External Exam Nose: Normal Inspection Head: Atraumatic, Normocephalic Neck: Normal Inspection Respiratory/Chest: No Respiratory Distress Extremities: Other (Swelling to the left knee with pain upon palpation. No erythema. Good sensation or pulses distally.) Course - Vital Signs Last Recorded V/S: Last Vital Signs Temp 98.3 F 10/18/19 13:01 Pulse 107 H 10/18/19 13:01 Resp 16 10/18/19 13:01 BP 130/115 H 10/18/19 13:01 Pulse Ox 100 10/18/19 13:01 - Orders/Labs/Meds Orders: Active Orders 24 hr Category Date Time Status Naproxen [Naprosyn] Med 10/18/19 14:13 Once 500 mg PO ONETIME ONE Meds: Medications Discontinued Medications Generic Name Dose Route Start Last Admin Trade Name Freq PRN Reason Stop Dose Admin Hydrocodone Bitart/Acetaminophen 2 tab 10/18/19 12:58 10/18/19 13:05 Ashley 325-5 Mg PO 10/18/19 12:59 2 tab ONETIME ONE Administration - Re-Assessments/Exams Free Text/Narrative Re-Assessment/Exam: 10/18/19 13:09 I ordered hydrocodone 5mg X2 and an US of his left leg. 10/18/19 14:14 The US shows no evidence of deep venous thrombosis within the left lower extremity or within the right common femoral vein. He feels a little better. I will give him a dose of naprosyn here and a prescription for some hydrocodones. Departure - Departure Time of Disposition: 14:20 Disposition: Home, Self-Care 01 Condition: Good Clinical Impression: Postoperative pain of left knee - Discharge Information *PRESCRIPTION DRUG MONITORING PROGRAM REVIEWED*: No *COPY OF PRESCRIPTION DRUG MONITORING REPORT IN PATIENT ASHLEY: No Prescriptions: Hydrocodone/Acetaminophen [Hydrocodon-Acetaminophen 5-325] 1 - 2 each PO Q6HR PRN #20 tablet PRN Reason: Pain LORazepam [Ativan] 1 mg PO BEDTIME PRN #6 tablet PRN Reason: Sleep Referrals: PCP,None [Primary Care Provider] - Forms: ED Department Discharge Additional Instructions: Keep icing and elevating your leg. Take tylenol or motrin for pain. If that does not help try the hydrocodone. Take the ativan at night to help with sleep. Please return if you are worse. Sepsis Event Note - Focused Exam Vital Signs: Vital Signs Temp Pulse Resp BP Pulse Ox 10/18/19 13:01 98.3 F 107 H 16 130/115 H 100 Date Exam was Performed: 10/18/19 Time Exam was Performed: 14:14 - My Orders Last 24 Hours: My Active Orders 10/18/19 14:13 Naproxen [Naprosyn] 500 mg PO ONETIME ONE - Assessment/Plan Last 24 Hours: My Active Orders 10/18/19 14:13 Naproxen [Naprosyn] 500 mg PO ONETIME ONE
--- NOTE | 2019-10-18 14:05 | US ---
Left lower extremity deep venous ultrasound: Duplex and color Doppler evaluation of the left common femoral, proximal greater saphenous, superficial femoral, popliteal, posterior and peroneal veins were obtained. Right common femoral vein is also evaluated. Findings: Patient was not able to tolerate augmentation within the left lower extremity. Normal compression and phasic flow are seen. Impression: 1. No evidence of deep venous thrombosis within the left lower extremity or within the right common femoral vein. Diagnostic code #1 This report was dictated in Mountain Standard Time
[2019-10-18] MEDS ORDERED: Naproxen 500 MG Tab PO ONE (14:13)
== END 2019-10-18 14:35 | disposition home or self-care (01) ==
LOC: JD.ED 12:06
DX: G89.18 Other acute postprocedural pain (principal); M25.562 Pain in left knee; F98.8 Other specified behavioral and emotional disorders with onset usually occurring in childhood and adolescence; Z79.899 Other long term (current) drug therapy
CPT/HCPCS: 93971; 99284; A9270; 99283

== ENCOUNTER 2020-01-23 22:07 | Emergency (ER) | payer BC, OTHER ==
[2020-01-23 22:39] VITALS: BP 133/90; PULSE 106
[2020-01-23] MEDS ORDERED: Albuterol 6.7 GM Inhaler INH STA (23:13)
--- NOTE | 2020-01-23 23:17 | EDM.PDOC ---
ED HPI GENERAL MEDICAL PROBLEM - General Chief Complaint: Respiratory Problem Stated Complaint: sore throat cough fever swelling in hands and fert Time Seen by Provider: 01/23/20 22:40 Source of Information: Reports: Patient History Limitations: Reports: No Limitations - History of Present Illness INITIAL COMMENTS - FREE TEXT/NARRATIVE: Mr. Galeana is a very pleasant 44-year-old man with a past medical history significant for GERD, ADHD, depression, and chronic lower back pain following an injury when he fell off of a building, who now presents to the ED stating that he developed mid-back pain yesterday, then a sore throat, a cough with dyspnea on exertion, subjective fever, and swelling of his face, hands, and bilateral legs, today. He states that his mid-back pain is different from his usual lower back pain, and made worse when he takes a deep breath or bends over. He states that he took some oxycodone around 20:00 this evening, without significant relief of his symptoms. Here in the ED, the patient is found to be mildly tachycardic, otherwise he is hemodynamically stable, afebrile, saturating 92% on room air. The patient's PCP is SEDRICK Gonsales, although he sees SEDRICK Gray for his Adderall. He did not receive an influenza vaccine this season, and declined an offer to receive one here today. Bilateral Middle Back Pain Score (Numeric/FACES): 5 - Related Data Allergies Allergy/AdvReac Type Severity Reaction Status Date / Time No Known Allergies Allergy Verified 01/23/20 22:39 Home Meds: Home Meds Baclofen 20 mg PO TID PRN 12/13/17 [History] Gabapentin [Gralise] 600 mg PO TID 12/13/17 [History] Dextroamphetamine/Amphetamine [Adderall] 25 mg PO DAILY 08/02/19 [History] Pantoprazole Sodium [Protonix] 40 mg PO DAILY 01/23/20 [History] Sertraline [Zoloft] 100 mg PO DAILY 01/23/20 [History] Past Medical History Gastrointestinal History: Reports: GERD Musculoskeletal History: Reports: Back Pain, Chronic (due to spinal arthritis), Fracture (right wrist) Psychiatric History: Reports: ADHD, Depression - Past Surgical History HEENT Surgical History: Reports: Oral Surgery (dental extractions) GI Surgical History: Reports: Appendectomy, Other (See Below) (Exploratory laparotomy) Musculoskeletal Surgical History: Reports: Arthroscopic Knee (left), Other (See Below) (Right snd finger debridement) Social & Family History - Family History Family Medical History: Noncontributory - Tobacco Use Smoking Status *Q: Current Every Day Smoker Years of Tobacco use: 25 Packs/Tins Daily: 0.5 Packs/Tins Daily Comment: Down from 3 ppd - Caffeine Use Caffeine Use: Reports: Coffee, Tea - Alcohol Use Alcohol Use History: Yes Alcohol Use Frequency: Rarely - Recreational Drug Use Recreational Drug Use: Yes Drug Use in Last 12 Months: No Recreational Drug Type: Reports: Marijuana/Hashish (last smoked as a teenager) - Living Situation & Occupation Living situation: Reports: , with Spouse, with Family (2 kids) 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 ED EXAM, GENERAL - Physical Exam Exam: See Below Exam Limited By: No Limitations General Appearance: Alert, WD/WN, No Apparent Distress Eye Exam: Bilateral Eye: EOMI, Normal Inspection Ears: Normal External Exam, Normal Canal, Hearing Grossly Normal, Normal TMs Nose: Normal Inspection, Normal Mucosa, No Blood Throat/Mouth: Normal Inspection, Normal Lips, Normal Gums, No Airway Compromise , Other (Dentures. Dry oral mucosa. No swelling or inordinate erythema. Hoarse voice.) Head: Atraumatic, Normocephalic Neck: Normal Inspection, Supple, Non-Tender, Full Range of Motion. No: Lymphadenopathy (L), Lymphadenopathy (R) Respiratory/Chest: No Respiratory Distress, No Accessory Muscle Use, Rhonchi, Wheezing (fine, expiratory, throughout both lung sewell). No: Decreased Breath Sounds, Crackles, Stridor, Prolonged Expiration Cardiovascular: Normal Peripheral Pulses, Regular Rate, Rhythm, No Gallop, No JVD, No Murmur, No Rub Peripheral Pulses: 4+: Radial (L), Radial (R), Posterior Tibial (L), Posterior Tibial (R), Dorsalis Pedis (L), Dorsalis Pedis (R) GI/Abdominal: Normal Bowel Sounds, Soft, Non-Tender, No Organomegaly, No Distention, No Abnormal Bruit, No Mass (Male) Exam: Deferred Rectal (Males) Exam: Deferred Back Exam: Full Range of Motion, Paraspinal Tenderness (Mid-back, bilaterally). No: Vertebral Tenderness Extremities: Normal Range of Motion, Normal Capillary Refill, Other (2+ pitting edema pretibially, including the ankles) Neurological: Alert, Oriented, Normal Cognition, No Motor/Sensory Deficits Psychiatric: Normal Affect Skin Exam: Warm, Dry, Intact, Normal Color, No Rash Course - Vital Signs Last Recorded V/S: Last Vital Signs Temp 37.9 C 01/23/20 22:30 Pulse 106 H 01/23/20 22:30 Resp 20 01/23/20 22:30 BP 133/90 01/23/20 22:30 Pulse Ox 92 L 01/23/20 23:26 - Orders/Labs/Meds Orders: Active Orders 24 hr Category Date Time Status RT Post Treatment Assessment [RC] Click to Edit Care 01/23/20 23:14 Active RT Pre-Treatment Assessment [RC] Click to Edit Care 01/23/20 23:14 Active Chest 2V [CR] Stat Exams 01/23/20 22:58 Once Venous Doppler Lwr Ext Bi [US] Stat Exams 01/23/20 23:02 Taken CORONAVIRUS COVID-19 PCR PHL Stat Lab 01/23/20 23:15 Received CULTURE STREP A CONFIRMATION [RM] Stat Lab 01/23/20 23:29 Ordered STREP SCRN A RAPID W CULT CONF [RM] Stat Lab 01/23/20 23:29 Ordered Isolation [COMM] Routine Oth 01/23/20 22:58 Ordered Labs: Laboratory Tests 01/23/20 01/23/20 01/23/20 Range/Units 23:22 23:22 23:22 WBC 9.09 H (4.23-9.07) K/mm3 RBC 3.97 L (4.63-6.08) M/mm3 Hgb 12.4 L (13.7-17.5) gm/dl Hct 36.9 L (40.1-51.0) % MCV 92.9 H (79.0-92.2) fl MCH 31.2 (25.7-32.2) pg MCHC 33.6 (32.2-35.5) g/dl RDW Std Deviation 47.2 H (35.1-43.9) fL Plt Count 247 (163-337) K/mm3 MPV 9.6 (9.4-12.3) fl Neutrophils % (Manual) 63 H (40-60) % Band Neutrophils % 1 (0-10) % Lymphocytes % (Manual) 27 (20-40) % Atypical Lymphs % 0 % Monocytes % (Manual) 5 (2-10) % Eosinophils % (Manual) 3 (0.8-7.0) % Basophils % (Manual) 1 (0.2-1.2) Platelet Estimate Adequate Plt Morphology Comment Normal RBC Morph Comment Normal PT 9.8 (9.7-12.0) SECONDS INR < 0.93 APTT 31 (22-31) SECONDS D-Dimer, Quantitative 0.34 (0.19-0.50) mg/L Sodium (136-145) mEq/L Potassium (3.5-5.1) mEq/L Chloride (98-107) mEq/L Carbon Dioxide (21-32) mEq/L Anion Gap (5-15) BUN (7-18) mg/dL Creatinine (0.7-1.3) mg/dL Est Cr Clr Drug Dosing mL/min Estimated GFR (MDRD) (>60) mL/min BUN/Creatinine Ratio (14-18) Glucose (74-106) mg/dL Lactic Acid (0.4-2.0) mmol/L Calcium (8.5-10.1) mg/dL Magnesium (1.8-2.4) mg/dl Ferritin (26-388) ng/ml Total Bilirubin (0.2-1.0) mg/dL AST (15-37) U/L ALT (16-63) U/L Alkaline Phosphatase (46-116) U/L Lactate Dehydrogenase (85-227) U/L Creatine Kinase (39-308) U/L C-Reactive Protein 4.5 H* (<1.0) mg/dL NT-Pro-B Natriuret Pep (0-125) pg/mL Total Protein (6.4-8.2) g/dl Albumin (3.4-5.0) g/dl Globulin gm/dL Albumin/Globulin Ratio (1-2) 01/23/20 01/23/20 01/23/20 Range/Units 23:22 23:22 23:22 WBC (4.23-9.07) K/mm3 RBC (4.63-6.08) M/mm3 Hgb (13.7-17.5) gm/dl Hct (40.1-51.0) % MCV (79.0-92.2) fl MCH (25.7-32.2) pg MCHC (32.2-35.5) g/dl RDW Std Deviation (35.1-43.9) fL Plt Count (163-337) K/mm3 MPV (9.4-12.3) fl Neutrophils % (Manual) (40-60) % Band Neutrophils % (0-10) % Lymphocytes % (Manual) (20-40) % Atypical Lymphs % % Monocytes % (Manual) (2-10) % Eosinophils % (Manual) (0.8-7.0) % Basophils % (Manual) (0.2-1.2) Platelet Estimate Plt Morphology Comment RBC Morph Comment PT (9.7-12.0) SECONDS INR APTT (22-31) SECONDS D-Dimer, Quantitative (0.19-0.50) mg/L Sodium 136 (136-145) mEq/L Potassium 3.8 (3.5-5.1) mEq/L Chloride 102 (98-107) mEq/L Carbon Dioxide 26 (21-32) mEq/L Anion Gap 11.8 (5-15) BUN 20 H (7-18) mg/dL Creatinine 0.9 (0.7-1.3) mg/dL Est Cr Clr Drug Dosing 109.27 mL/min Estimated GFR (MDRD) > 60 (>60) mL/min BUN/Creatinine Ratio 22.2 H (14-18) Glucose 96 (74-106) mg/dL Lactic Acid (0.4-2.0) mmol/L Calcium 8.6 (8.5-10.1) mg/dL Magnesium 1.6 L (1.8-2.4) mg/dl Ferritin 191 (26-388) ng/ml Total Bilirubin 0.4 (0.2-1.0) mg/dL AST 51 H (15-37) U/L ALT 28 (16-63) U/L Alkaline Phosphatase 60 (46-116) U/L Lactate Dehydrogenase 282 H (85-227) U/L Creatine Kinase 1824 H (39-308) U/L C-Reactive Protein (<1.0) mg/dL NT-Pro-B Natriuret Pep 362 H (0-125) pg/mL Total Protein 6.7 (6.4-8.2) g/dl Albumin 3.4 (3.4-5.0) g/dl Globulin 3.3 gm/dL Albumin/Globulin Ratio 1.0 (1-2) 01/23/20 Range/Units 23:22 WBC (4.23-9.07) K/mm3 RBC (4.63-6.08) M/mm3 Hgb (13.7-17.5) gm/dl Hct (40.1-51.0) % MCV (79.0-92.2) fl MCH (25.7-32.2) pg MCHC (32.2-35.5) g/dl RDW Std Deviation (35.1-43.9) fL Plt Count (163-337) K/mm3 MPV (9.4-12.3) fl Neutrophils % (Manual) (40-60) % Band Neutrophils % (0-10) % Lymphocytes % (Manual) (20-40) % Atypical Lymphs % % Monocytes % (Manual) (2-10) % Eosinophils % (Manual) (0.8-7.0) % Basophils % (Manual) (0.2-1.2) Platelet Estimate Plt Morphology Comment RBC Morph Comment PT (9.7-12.0) SECONDS INR APTT (22-31) SECONDS D-Dimer, Quantitative (0.19-0.50) mg/L Sodium (136-145) mEq/L Potassium (3.5-5.1) mEq/L Chloride (98-107) mEq/L Carbon Dioxide (21-32) mEq/L Anion Gap (5-15) BUN (7-18) mg/dL Creatinine (0.7-1.3) mg/dL Est Cr Clr Drug Dosing mL/min Estimated GFR (MDRD) (>60) mL/min BUN/Creatinine Ratio (14-18) Glucose (74-106) mg/dL Lactic Acid 0.6 (0.4-2.0) mmol/L Calcium (8.5-10.1) mg/dL Magnesium (1.8-2.4) mg/dl Ferritin (26-388) ng/ml Total Bilirubin (0.2-1.0) mg/dL AST (15-37) U/L ALT (16-63) U/L Alkaline Phosphatase (46-116) U/L Lactate Dehydrogenase (85-227) U/L Creatine Kinase (39-308) U/L C-Reactive Protein (<1.0) mg/dL NT-Pro-B Natriuret Pep (0-125) pg/mL Total Protein (6.4-8.2) g/dl Albumin (3.4-5.0) g/dl Globulin gm/dL Albumin/Globulin Ratio (1-2) Meds: Medications Discontinued Medications Generic Name Dose Route Start Last Admin Trade Name Freq PRN Reason Stop Dose Admin Albuterol 0 gm 01/23/20 23:13 01/23/20 23:25 Proventil Hfa INH 01/23/20 23:14 2 puff ONETIME STA Administration Magnesium Sulfate 2 gm/ Premix 50 mls @ 25 mls/hr 01/24/20 00:21 01/24/20 00: 41 IV 01/24/20 02:20 25 mls/hr ONETIME ONE Administration - Re-Assessments/Exams Free Text/Narrative Re-Assessment/Exam: 01/23/20 23:08 As above, the patient presents with mid back pain and tenderness, a sore throat , cough with dyspnea on exertion, subjective fever, and swelling of his face, bilateral hands, and bilateral legs. On examination, I do not actually see any swelling to his face, and the swelling to his hands is subtle, if present, although he does have significant lower extremity edema. The cause of these constellation of symptoms is not immediately clear, therefore I have ordered an extensive work-up that includes blood work, a rapid strep test, an influenza swab, a swab for COVID-19, a chest x-ray, and bilateral lower extremity Dopplers. 01/23/20 23:18 Because of the patient's wheezing, I attempted to enter an order for albuterol and ipratropium to be delivered by MDIs via space chambers to minimize aerosolization. Unfortunately, it does not appear that we carry ipratropium MDIs, therefore the patient will be given albuterol alone. 01/23/20 23:52 Two-view chest radiograph appears to be grossly normal. The cardiac silhouette is within normal limits. No pulmonary vascular congestion. No pleural effusions. No focal infiltrate. No pneumothorax. Formal read per the Radiologist pending. 01/24/20 00:22 The patient's CBC is remarkable for a WBC count slightly elevated at 9.09, but with 1% bandemia. His ANC is 5817, and his ALC is 2454, with a ratio of 2.37. His H/H is mildly depressed at 12.4/36.9, with the remainder of his CBC being unremarkable. His CMP is remarkable for a bicarbonate slightly depressed at 20, and an AST slightly elevated at 51 with an ALT normal at 28, and the remainder of his CMP being unremarkable. His magnesium level is mildly depressed at 1.6. His lactic acid level is within normal limits at 0.6. His LDH is mildly elevated at 282. His CPK is elevated at 1824. His CRP is elevated at 4.5. His ferritin is within normal limits at 191. His BNP is mildly elevated at 362. His D-dimer is within normal limits at 0.34. His coags are within normal limits. His influenza swab is negative. His rapid strep test is negative. Results of his bilateral lower extremity Doppler are still pending. Based on the above, I have ordered a 2 g Mg-rider. The patient's elevated AST, LDH, CPK, and CRP are all consistent with COVID-19, however, his normal chest x-ray, mild leukocytosis with lack of lymphopenia, and lack of elevated ferritin and D-dimer are not consistent with COVID-19. 01/24/20 01:11 Notified by the pyrotechnician that the Doppler ultrasound appears to be negative for a DVT, bilaterally, however, a formal report is pending. 01/24/20 01:21 Doppler ultrasound of the bilateral lower extremities is read by [facility] as "No evidence of deep venous thrombosis in either leg." The cause of the patient's lower extremity edema is unknown. It may be related to excessive salt in his diet. Of note, his albumin is within normal limits at 3.4. I am not aware of an association between lower extremity edema and COVID- 19. Overall, it appears that the patient's respiratory symptoms are due to a virus, however, it may outreach counselor that that virus is SARS-CoV-2. At this time, I do not see an indication for hospitalization, nor for antibiotics. I believe the patient can safely be discharged home and follow-up with his PCP as needed. 01/24/20 01:33 I attempted to discuss the patient's test results with him, but he kept falling asleep on me. After the third time, we agreed that I will simply write my impressions down in his discharge instructions, and he can review them in the morning. He did indicate that his breathing feels better after the albuterol MDI. 01/24/20 01:47 Notified by Brenda HOBBS that the patient still has about 1 hour remaining on his Mg-rider; we will discharge the patient after it has finished infusing. Departure - Departure Time of Disposition: 01:34 Disposition: Home, Self-Care 01 Condition: Good Clinical Impression: Cough, Mid back pain, Bilateral lower extremity edema - Discharge Information *PRESCRIPTION DRUG MONITORING PROGRAM REVIEWED*: Not Applicable *COPY OF PRESCRIPTION DRUG MONITORING REPORT IN PATIENT ASHLEY: Not Applicable Instructions: Cough, Adult, [id number], Acute Back Pain, Adult, Edema, Easy- to-Read Referrals: Eliud Elliott PA-C [Primary Care Provider] - Evonne Figueroa PA-C [Ordering Only Provider] - Forms: ED Department Discharge Additional Instructions: You were seen in the emergency room after developing mid back pain, a sore throat, a cough with shortness of breath on exertion, and lower extremity edema. Work-up in the ER included blood work, an influenza swab, a rapid strep test, test for COVID-19, a chest x-ray, and Doppler ultrasounds of both of your lower extremities. The results of your COVID-19 test will not be available for 1 to 2 days, and someone will notify you of that test result, however, in the meantime, several of your symptoms and some of your lab tests are consistent with COVID-19, and for that reason, we are strongly recommending that you self isolate until you are given the results of your COVID-19 test. Presuming your COVID-19 test is negative, the cause of your respiratory symptoms appears to be a viral illness. The cause of your lower extremity edema is not known, but may be due to excessive salt intake. You do not have a blood clot in either leg. If your symptoms persist, we recommend that you follow-up with your PCP, Eliud Elliott, for further evaluation. If any other problems, please do not hesitate to return to the ER. Sepsis Event Note - Evaluation Sepsis Screening Result: No Definite Risk - Focused Exam Vital Signs: Vital Signs Temp Pulse Resp BP Pulse Ox Pulse Ox 01/23/20 23:26 92 L 01/23/20 22:30 37.9 C 106 H 20 133/90 92 L Date Exam was Performed: 01/24/20 Time Exam was Performed: 04:22 - My Orders Last 24 Hours: My Active Orders 01/23/20 22:58 Chest 2V [CR] Stat Isolation [COMM] Routine 01/23/20 23:02 Venous Doppler Lwr Ext Bi [US] Stat 01/23/20 23:14 RT Post Treatment Assessment [RC] Click to Edit RT Pre-Treatment Assessment [RC] Click to Edit 01/23/20 23:15 CORONAVIRUS COVID-19 PCR PHL Stat 01/23/20 23:29 CULTURE STREP A CONFIRMATION [RM] Stat STREP SCRN A RAPID W CULT CONF [RM] Stat - Assessment/Plan Last 24 Hours: My Active Orders 01/23/20 22:58 Chest 2V [CR] Stat Isolation [COMM] Routine 01/23/20 23:02 Venous Doppler Lwr Ext Bi [US] Stat 01/23/20 23:14 RT Post Treatment Assessment [RC] Click to Edit RT Pre-Treatment Assessment [RC] Click to Edit 01/23/20 23:15 CORONAVIRUS COVID-19 PCR PHL Stat 01/23/20 23:29 CULTURE STREP A CONFIRMATION [RM] Stat STREP SCRN A RAPID W CULT CONF [RM] Stat
[2020-01-24] MEDS ORDERED: Magnesium Sulfate/Water 2 GM in Premix Bag 1 BAG IV ONE (00:21)
--- NOTE | 2020-01-24 08:16 | CR ---
Chest: 2 views of the chest were obtained. Comparison: Prior chest x-ray of 02/19/15. Increased lung markings are noted which appear more prominent than on previous exam. Bronchitis is a possibility. Heart does not appear enlarged. No alveolar type densities are seen. Bony structures are unremarkable. Impression: 1. Increased lung markings most likely representing bronchitis. Diagnostic code #3 This report was dictated in MDT
--- NOTE | 2020-01-24 08:17 | US ---
Bilateral lower extremity deep venous ultrasound: Duplex and color Doppler evaluation was obtained of the right and left common femoral, superficial femoral, popliteal, posterior tibial and peroneal veins. Technologist' note: Patient uncooperative, would not respond Findings: Normal phasic flow, augmentation and compression is seen. Impression: 1. No evidence of deep venous thrombosis is seen within the right or left lower extremities. Diagnostic code #1 This report was dictated in MDT I agree with preliminary report from errol, finalized on 01/24/20, 2:06 AM Central Daylight Time
== END 2020-01-24 02:34 | disposition home or self-care (01) ==
LOC: JD.ED 22:07
DX: M54.6 Pain in thoracic spine (principal); R05 Cough; R60.0 Localized edema; K21.9 Gastro-esophageal reflux disease without esophagitis; F32.9 Major depressive disorder, single episode, unspecified; F17.210 Nicotine dependence, cigarettes, uncomplicated; Z79.899 Other long term (current) drug therapy
CPT/HCPCS: 36415; 71046; 80053; 82550; 82728; 83605; 83615; 83735; 83880; 85007; 85027; 85379; 85610; 85730; 86140; 87081; 87430; 87635; 87804; 93970; 94640; 96365; 96366; 99284; A9270; J3475; 99283; U0002

== ENCOUNTER 2021-05-28 11:51 | Emergency (ER) | payer BC ==
[2021-05-28 11:58] VITALS: BP 124/93; PULSE 111
--- NOTE | 2021-05-28 12:06 | EDM.PDOC ---
ED HPI GENERAL MEDICAL PROBLEM - General Chief Complaint: Chest Pain Stated Complaint: CHEST PAIN/L ARM PAIN X 2 DAYS Time Seen by Provider: 05/28/21 11:59 Source of Information: Reports: Patient History Limitations: Reports: No Limitations - History of Present Illness INITIAL COMMENTS - FREE TEXT/NARRATIVE: 45-year-old male presents to the ED for evaluation of persistent left precordial chest discomfort rating into his left shoulder and axilla and medial biceps for the last 2 days. Patient has been ill with an upper respiratory tract infection i.e. fever significant nasal congestion and sore throat. He was seen through the walk-in clinic at [facility] 3 days ago and had a negative Covid test. He has no cough or sputum production. Fever seemed to break last evening. Of note the patient does use Spiriva and albuterol metered-dose inhaler which he has not been using for the last few days. He is feeling slightly short of breath on exertion. Recognizes that he is wheezing more than normal. Patient smokes a pack of cigarettes daily. Onset: Gradual Onset Date: 05/27/21 Onset Time: 07:00 (Left precordial chest discomfort was present all day yesterday. Worse this morning) Duration: Hour(s):, Getting Worse Quality: Reports: Ache, Pressure, Other Severity: Moderate (Pain radiates into the left axilla) Improves with: Reports: None Worsens with: Reports: None Context: Denies: Activity (No worse on exertion), Exercise, Lifting, Sick Contact, Trauma, Other Associated Symptoms: Reports: Chest Pain, Cough, Fever/Chills, Shortness of Breath, Other (Getting over a cold symptoms mostly involving his nose and throat.). Denies: cough w sputum (Minimal sputum production), Diaphoresis (Did have a fever for 3 days and it broke yesterday.), Headaches, Loss of Appetite, Malaise, Nausea/Vomiting, Seizure, Syncope Treatments TECHNICAL SERVICES REPRESENTATIVE: Reports: NSAIDS (Motrin.) Left Arm Pain Score (Numeric/FACES): 4 - Related Data Allergies Allergy/AdvReac Type Severity Reaction Status Date / Time No Known Allergies Allergy Verified 05/28/21 11:58 Home Meds: Home Meds Baclofen 20 mg PO TID PRN 12/13/17 [History] Gabapentin [Gralise] 600 mg PO TID 12/13/17 [History] predniSONE [Prednisone] 20 mg PO BID #10 tablet 05/28/21 [Rx] Past Medical History - Past Health History Medical/Surgical History: Denies Medical/Surgical History Cardiovascular History: Reports: None Respiratory History: Reports: None Gastrointestinal History: Reports: GERD Other Gastrointestinal History: exploratory abdominal surgery Genitourinary History: Reports: None 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 Neurological History: Reports: None Psychiatric History: Reports: ADHD, Depression Endocrine/Metabolic History: Reports: None Hematologic History: Reports: None Immunologic History: Reports: None Oncologic (Cancer) History: Reports: None Dermatologic History: Reports: None - Past Surgical History HEENT Surgical History: Reports: Oral Surgery (dental extractions) GI Surgical History: Reports: Appendectomy, Other (See Below) (Exploratory laparotomy) Musculoskeletal Surgical History: Reports: Arthroscopic Knee (left), Other (See Below) (Right snd finger debridement) Social & Family History - Family History Family Medical History: No Pertinent Family History - Tobacco Use Tobacco Use Status *Q: Current Every Day Tobacco User Tobacco Use Within Last Twelve Months: Cigarettes (25) - Caffeine Use Caffeine Use: Reports: Coffee, Tea - Living Situation & Occupation Living situation: Reports: , with Spouse, with Family (2 kids) 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 Denies: Chills (Fever for 3 days which broke yesterday.), Malaise HEENT: Reports: Rhinitis, Sinus Problem, Throat Pain (Pain for 3 days better again yesterday) Respiratory: Reports: Shortness of Breath, Cough. Denies: Wheezing, Pleuritic Chest Pain, Sputum, Hemoptysis (Minimally productive cough), Other Cardiovascular: Reports: Chest Pain (Left precordial chest pressure discomfort rating into the left axilla and medial arm), Dyspnea on Exertion (On occasion. Patient has asthma). Denies: Blood Pressure Problem, Claudication, Edema, Lightheadedness, Orthopnea Endocrine: Reports: No Symptoms GI/Abdominal: Reports: No Symptoms : Reports: No Symptoms Musculoskeletal: Reports: No Symptoms Skin: Reports: No Symptoms Neurological: Reports: No Symptoms Psychiatric: Reports: No Symptoms ED EXAM, GENERAL - Physical Exam Exam: See Below Exam Limited By: No Limitations General Appearance: Alert, WD/WN, Anxious (Mildly anxious), Other (Temperature is 37.1 degrees. Heart rate was 111 at the bedside and sinus tachycardia on the monitor. Respiratory is 18 with O2 sats of 95% room air. BP 124/93.) Eye Exam: Bilateral Eye: Normal Inspection (No blepharal pallor or scleral icterus.), PERRL Throat/Mouth: Normal Inspection, Normal Lips, Normal Oropharynx Head: Atraumatic, Normocephalic Neck: Normal Inspection, Supple, Non-Tender, Full Range of Motion. No: Lymphadenopathy (L), Lymphadenopathy (R) Respiratory/Chest: No Respiratory Distress, No Accessory Muscle Use, Wheezing (Diffuse wheezing all lung sewell), Other (I could not elicit any chest wall pain on palpation of all ribs midclavicular line both sides.). 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 No: CVA Tenderness (L), CVA Tenderness (R) Extremities: Normal Inspection, Normal Range of Motion, Non-Tender, No Pedal Edema Neurological: Alert, Oriented, CN II-XII Intact, Normal Cognition Psychiatric: Normal Affect, Normal Mood Skin Exam: Warm, Dry, Intact, Normal Color, No Rash #1 Interpretation EKG Date: 05/28/21 Time: 11:58 Rhythm: Other Rate (Beats/Min): 107 [place]: Normal P-Wave: Enlarged (Left atrial hypertrophy pattern) QRS: Other (Prominent QRS complexes due to the patient being very thin.) ST-T: Other (Diffuse early repolarization pattern) QT: Normal EKG Interpretation Comments: Borderline ECG Course - Vital Signs Last Recorded V/S: Last Vital Signs Temp 37.1 C 05/28/21 11:55 Pulse 111 H 05/28/21 11:55 Resp 18 05/28/21 11:55 BP 124/93 H 05/28/21 11:55 Pulse Ox 93 L 05/28/21 12:07 - Orders/Labs/Meds Orders: Active Orders 24 hr Category Date Time Status RT Aerosol Therapy [RC] ASDIRECTED Care 05/28/21 12:07 Active Albuterol/Ipratropium [DuoNeb 3.0-0.5 MG/3 ML] Med 05/28/21 12:07 Active 3 ml NEB Q4H PRN Medication Orders Albuterol/Ipratropium (Albuterol/Ipratropium 3.0-0.5 Mg/3 Ml Neb Soln) 3 ml NEB Q4H PRN PRN Reason: Shortness Of Breath/wheezing Last Admin: 05/28/21 12:41 Dose: 3 ml Documented by: JOANN Labs: Laboratory Tests 05/28/21 05/28/21 05/28/21 Range/Units 12:20 12:20 12:20 WBC 9.82 H (4.23-9.07) K/mm3 RBC 4.99 (4.63-6.08) M/mm3 Hgb 15.8 D (13.7-17.5) gm/dl Hct 45.5 (40.1-51.0) % MCV 91.2 (79.0-92.2) fl MCH 31.7 (25.7-32.2) pg MCHC 34.7 (32.2-35.5) g/dl RDW Std Deviation 47.2 H (35.1-43.9) fL Plt Count 310 (163-337) K/mm3 MPV 9.3 L (9.4-12.3) fl Neutrophils % (Manual) 51 (40-60) % Band Neutrophils % 0 (0-10) % Lymphocytes % (Manual) 30 (20-40) % Atypical Lymphs % 8 % Monocytes % (Manual) 7 (2-10) % Eosinophils % (Manual) 3 (0.8-7.0) % Basophils % (Manual) 1 (0.2-1.2) Platelet Estimate Adequate Plt Morphology Comment Normal RBC Morph Comment Normal Sodium 139 (136-145) mEq/L Potassium 4.1 (3.5-5.1) mEq/L Chloride 102 (98-107) mEq/L Carbon Dioxide 27 (21-32) mEq/L Anion Gap 14.1 (5-15) BUN 13 (7-18) mg/dL Creatinine 1.1 (0.7-1.3) mg/dL Est Cr Clr Drug Dosing 82.47 mL/min Estimated GFR (MDRD) > 60 (>60) mL/min BUN/Creatinine Ratio 11.8 L (14-18) Glucose 90 (70-99) mg/dL Calcium 8.5 (8.5-10.1) mg/dL Magnesium 2.0 (1.8-2.4) mg/dL Total Bilirubin 0.4 (0.2-1.0) mg/dL AST 14 L (15-37) U/L ALT 17 (16-63) U/L Alkaline Phosphatase 49 (46-116) U/L Lactate Dehydrogenase 128 (85-227) U/L CK-MB (CK-2) < 0.5 (0-3.6) ng/ml Troponin I < 0.017 (0.00-0.056) ng/mL C-Reactive Protein <0.2 (<1.0) mg/dL NT-Pro-B Natriuret Pep 10 (0-125) pg/mL Total Protein 7.6 (6.4-8.2) g/dl Albumin 4.0 (3.4-5.0) g/dl Globulin 3.6 gm/dL Albumin/Globulin Ratio 1.1 (1-2) Meds: Medications Generic Name Dose Route Start Last Admin Trade Name Freq PRN Reason Stop Dose Admin Albuterol/Ipratropium 3 ml 05/28/21 12:07 05/28/21 12:41 Albuterol/Ipratropium 3.0-0.5 Mg/3 Ml Neb Soln NEB 3 ml Q4H PRN Administration Shortness Of Breath/wheezing - Radiology Interpretation Free Text/Narrative:: 45-year-old male presents to the ED with left precordial chest discomfort rating into his left axilla and medial aspect of his biceps. Started yesterday and is still present today perhaps a little worse. He has been ill with an upper respiratory tract infection with nasal congestion sore throat but no worsening of his cough. He was checked at the walk-in clinic 3 days ago and was negative for COVID-19 illness. He was febrile and the fever broke yesterday. Appetite has been somewhat depressed but has developed no nausea vomiting or diarrhea. Of note the patient does have asthma and smokes a pack to a pack and half cigarettes daily. Exam reveals audible wheezing throughout all lung sewell. No chest wall pain elicited on examination. Plan DuoNeb to be given now. He usually uses Spiriva every morning when he has not for the last 3 to 4 days. He will have a cardiac rule out done and a chest x-ray portably. - Re-Assessments/Exams Free Text/Narrative Re-Assessment/Exam: 05/28/21 13:00: Chest x-ray reveals mildly hyperinflated lung sewell bilaterally. There is increased interstitial markings in both lower lung sewell without any evidence of an infiltrate or pleural effusion. Cardiac silhouette and mediastinum are normal. On reexamination the patient has much improved lung sounds without wheeze except at the lung bases. Awaiting his labs. 05/28/21 13:30 White count was 9.82 differential shows 51% neutrophils no bands cells. Hemoglobin 15.8 with hematocrit of 45.5 and platelet count of 310,000. Chemistry shows a sodium 139 potassium of 4.1. Chloride 102 with a bicarb of 27. Anion gap is 14.1. BUN is 13 with a creatinine of 1.1 and a GFR greater than 60. Glucose is 90. Calcium is 8.5. Magnesium is 2.0. Liver function is normal. LDH was normal at 128. CK-MB is less than 0.5. Troponin I was less than 0.017. C-reactive protein less than 0.2. BNP is 10. Total protein 7.6 with an albumin fraction of 4.0. There is no evidence of cardiac involvement. Patient reassured in this regard. I am going to place him on prednisone 20 mg twice daily for 5 days at breakfast and supper time due to the amount of wheezing and chest congestion that he has. I believe strongly is current chest pain rating into his left axilla is likely inflammation of the underlying pleura from recent viral upper respiratory tract infection. Patient will resume his inhalers which include Spiriva in the morning and albuterol usually twice daily. Departure - Departure Time of Disposition: 13:25 Disposition: Home, Self-Care 01 Reason for Transfer *Q: Other Condition: Fair Clinical Impression: Non-cardiac chest pain, Atypical chest pain Prescriptions: predniSONE [Prednisone] 20 mg PO BID #10 tablet Instructions: Pleurodynia Referrals: Eliud Elliott PA-C [Primary Care Provider] - Forms: ED Department Discharge Additional Instructions: Evaluation in the emergency room today in regards to left-sided chest discomfort rating up into the left arm and armpit area and medial aspect of your biceps. This is followed an upper respiratory tract infection with nasal congestion and sore throat but no worsening of cough. Examination revealed diffuse wheezing throughout both lung sewell with a history of COPD and asthma symptoms. Chest x-ray did not reveal any signs of pneumonia or abnormalities. Lab test proved to be negative for any evidence of heart related illness. There appears to be an inflammation likely of the underlying lung lining likely viral in origin due to the upper respiratory tract infection you recently experienced. I would suggest resumption of your inhalers as before. Suggest using prednisone 20 mg tablet twice daily with supper and breakfast for the next 5 days to relieve pain and inflammation. It will also help wheezing and chest congestion. Sepsis Event Note (ED) - Focused Exam Vital Signs: Vital Signs Temp Pulse Resp BP Pulse Ox Pulse Ox 05/28/21 12:07 93 L 05/28/21 11:55 37.1 C 111 H 18 124/93 H 95 - My Orders Last 24 Hours: My Active Orders 05/28/21 12:07 RT Aerosol Therapy [RC] ASDIRECTED Albuterol/Ipratropium [DuoNeb 3.0-0.5 MG/3 ML] 3 ml NEB Q4H PRN - Assessment/Plan Last 24 Hours: My Active Orders 05/28/21 12:07 RT Aerosol Therapy [RC] ASDIRECTED Albuterol/Ipratropium [DuoNeb 3.0-0.5 MG/3 ML] 3 ml NEB Q4H PRN
[2021-05-28] MEDS ORDERED: Albuterol/Ipratropium 3.0-0.5 MG/3 ML Neb Soln NEB PRN (12:07)
--- NOTE | 2021-05-28 12:35 | CR ---
Chest: Portable view of the chest was obtained. Comparison: Prior chest x-ray of 10/22/20. Heart size and mediastinum are normal. Lungs are clear with no acute parenchymal change. Bony structures show nothing acute. Impression: 1. Nothing acute is seen on portable chest x-ray. Diagnostic code #1
== END 2021-05-28 13:57 | disposition home or self-care (01) ==
LOC: JD.ED 11:51
DX: R07.89 Other chest pain (principal); R07.2 Precordial pain; F17.210 Nicotine dependence, cigarettes, uncomplicated
CPT/HCPCS: 36415; 71045; 71045-26; 80053; 82553; 83615; 83735; 83880; 84484; 85007; 85027; 86140; 93005; 94640; 99282; 99285-25; J7620-GY

== ENCOUNTER 2021-06-02 10:33 | Emergency (ER) | payer BC ==
[2021-06-02 10:51] VITALS: BP 123/82; PULSE 99
--- NOTE | 2021-06-02 13:21 | EDM.PDOC ---
ED HPI GENERAL MEDICAL PROBLEM - General Chief Complaint: General Stated Complaint: COVID + Time Seen by Provider: 06/02/21 11:04 Source of Information: Reports: Patient, RN Notes Reviewed History Limitations: Reports: No Limitations - History of Present Illness INITIAL COMMENTS - FREE TEXT/NARRATIVE: Patient a 45-year-old male presenting to the emergency department with compla ints of fatigue and difficulty concentrating. He reports that all last week, he was sick with sore throat, nausea, vomiting, diarrhea. Denies any cough or shortness of breath. He was seen at the [place] walk-in clinic on 2 occasions and tested for Covid and this was found to be negative. Symptoms have overall improved, however he does still have somewhat of a sore throat. For the last few days, he is been sleeping more than normal and feels very fatigued. He denies any chest pain or shortness of breath. - Related Data Allergies Allergy/AdvReac Type Severity Reaction Status Date / Time No Known Allergies Allergy Verified 06/02/21 10:52 Home Meds: Home Meds Baclofen 20 mg PO TID PRN 12/13/17 [History] Gabapentin [Gralise] 600 mg PO TID 12/13/17 [History] predniSONE [Prednisone] 20 mg PO BID #10 tablet 05/28/21 [Rx] Past Medical History - Past Health History Medical/Surgical History: Denies Medical/Surgical History Cardiovascular History: Reports: None Respiratory History: Reports: None Gastrointestinal History: Reports: GERD Other Gastrointestinal History: exploratory abdominal surgery Genitourinary History: Reports: None PUBLICITY DIRECTOR History: Reports: None Musculoskeletal History: Reports: Back Pain, Chronic, Fracture Other Musculoskeletal History: Right arm fracture, chronic back pain Neurological History: Reports: None Psychiatric History: Reports: ADHD, Depression Endocrine/Metabolic History: Reports: None Hematologic History: Reports: None Immunologic History: Reports: None Oncologic (Cancer) History: Reports: None Dermatologic History: Reports: None - Past Surgical History Head Surgeries/Procedures: Reports: None HEENT Surgical History: Reports: Oral Surgery Cardiovascular Surgical History: Reports: None Respiratory Surgical History: Reports: None GI Surgical History: Reports: Appendectomy, Other (See Below) Other GI Surgeries/Procedures: "Exploratory surgery" Male Surgical History: Reports: None Endocrine Surgical History: Reports: None Neurological Surgical History: Reports: None Other Neurological Surgeries/Procedures: receives epidural injections Musculoskeletal Surgical History: Reports: Arthroscopic Knee, Other (See Below) Other Musculoskeletal Surgeries/Procedures:: Right index finger surgery. 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 ED EXAM, GENERAL - Physical Exam Exam: See Below Exam Limited By: No Limitations General Appearance: Alert, WD/WN, No Apparent Distress Eye Exam: Bilateral Eye: PERRL Respiratory/Chest: No Respiratory Distress, Lungs Clear, Normal Breath Sounds, N o Accessory Muscle Use, Chest Non-Tender Cardiovascular: Normal Peripheral Pulses, Regular Rate, Rhythm, No Edema, No Gallop, No JVD, No Murmur, No Rub GI/Abdominal: Normal Bowel Sounds, Soft, Non-Tender, No Organomegaly, No Distention, No Abnormal Bruit, No Mass Neurological: Alert, Oriented, CN II-XII Intact, Normal Cognition, Normal Gait, Normal Reflexes, No Motor/Sensory Deficits Psychiatric: Normal Affect, Normal Mood Skin Exam: Warm, Dry, Intact, Normal Color, No Rash Course - Vital Signs Last Recorded V/S: Last Vital Signs Temp 98.0 F 06/02/21 10:50 Pulse 99 06/02/21 10:50 Resp 20 06/02/21 10:50 BP 123/82 06/02/21 10:50 Pulse Ox 98 06/02/21 10:50 - Orders/Labs/Meds Labs: Laboratory Tests 06/02/21 06/02/21 06/02/21 Range/Units 10:48 10:48 10:48 WBC 6.73 (4.23-9.07) K/mm3 RBC 5.00 (4.63-6.08) M/mm3 Hgb 15.8 (13.7-17.5) gm/dl Hct 45.0 (40.1-51.0) % MCV 90.0 (79.0-92.2) fl MCH 31.6 (25.7-32.2) pg MCHC 35.1 (32.2-35.5) g/dl RDW Std Deviation 45.5 H (35.1-43.9) fL Plt Count 314 (163-337) K/mm3 MPV 9.3 L (9.4-12.3) fl Neut % (Auto) 61.2 (34.0-67.9) % Lymph % (Auto) 29.6 (21.8-53.1) % [place] % (Auto) 6.1 (5.3-12.2) % Eos % (Auto) 1.6 (0.8-7.0) Baso % (Auto) 1.2 (0.1-1.2) % Neut # (Auto) 4.12 (1.78-5.38) K/mm3 Lymph # (Auto) 1.99 (1.32-3.57) K/mm3 [place] # (Auto) 0.41 (0.30-0.82) K/mm3 Eos # (Auto) 0.11 (0.04-0.54) K/mm3 Baso # (Auto) 0.08 (0.01-0.08) K/mm3 Sodium 138 (136-145) mEq/L Potassium 4.1 (3.5-5.1) mEq/L Chloride 101 (98-107) mEq/L Carbon Dioxide 26 (21-32) mEq/L Anion Gap 15.1 H (5-15) BUN 4 L (7-18) mg/dL Creatinine 1.0 (0.7-1.3) mg/dL Est Cr Clr Drug Dosing 93.74 mL/min Estimated GFR (MDRD) > 60 (>60) mL/min BUN/Creatinine Ratio 4.0 L (14-18) Glucose 103 H (70-99) mg/dL Calcium 8.0 L (8.5-10.1) mg/dL Total Bilirubin 0.5 (0.2-1.0) mg/dL AST 15 (15-37) U/L ALT 16 (16-63) U/L Alkaline Phosphatase 55 (46-116) U/L C-Reactive Protein <0.2 (<1.0) mg/dL Total Protein 7.3 (6.4-8.2) g/dl Albumin 3.8 (3.4-5.0) g/dl Globulin 3.5 gm/dL Albumin/Globulin Ratio 1.1 (1-2) Monoscreen (NEGATIVE) SARS-CoV-2 RNA (KIMBERLY) Negative (NEGATIVE) Group A Strep (PCR) (NOT DETECT) 06/02/21 06/02/21 Range/Units 10:48 11:20 WBC (4.23-9.07) K/mm3 RBC (4.63-6.08) M/mm3 Hgb (13.7-17.5) gm/dl Hct (40.1-51.0) % MCV (79.0-92.2) fl MCH (25.7-32.2) pg MCHC (32.2-35.5) g/dl RDW Std Deviation (35.1-43.9) fL Plt Count (163-337) K/mm3 MPV (9.4-12.3) fl Neut % (Auto) (34.0-67.9) % Lymph % (Auto) (21.8-53.1) % [place] % (Auto) (5.3-12.2) % Eos % (Auto) (0.8-7.0) Baso % (Auto) (0.1-1.2) % Neut # (Auto) (1.78-5.38) K/mm3 Lymph # (Auto) (1.32-3.57) K/mm3 [place] # (Auto) (0.30-0.82) K/mm3 Eos # (Auto) (0.04-0.54) K/mm3 Baso # (Auto) (0.01-0.08) K/mm3 Sodium (136-145) mEq/L Potassium (3.5-5.1) mEq/L Chloride (98-107) mEq/L Carbon Dioxide (21-32) mEq/L Anion Gap (5-15) BUN (7-18) mg/dL Creatinine (0.7-1.3) mg/dL Est Cr Clr Drug Dosing mL/min Estimated GFR (MDRD) (>60) mL/min BUN/Creatinine Ratio (14-18) Glucose (70-99) mg/dL Calcium (8.5-10.1) mg/dL Total Bilirubin (0.2-1.0) mg/dL AST (15-37) U/L ALT (16-63) U/L Alkaline Phosphatase (46-116) U/L C-Reactive Protein (<1.0) mg/dL Total Protein (6.4-8.2) g/dl Albumin (3.4-5.0) g/dl Globulin gm/dL Albumin/Globulin Ratio (1-2) Monoscreen Negative (NEGATIVE) SARS-CoV-2 RNA (KIMBERLY) (NEGATIVE) Group A Strep (PCR) Not detected (NOT DETECT) - Re-Assessments/Exams Free Text/Narrative Re-Assessment/Exam: Patient is a 45-year-old male presenting to the emergency department with complaints of fatigue, difficulty concentrating, and sore throat. He had symptoms of nausea, vomiting, diarrhea as well last week which have improved. He was tested for Covid 2 times last week and these are found to be negative. On exam, he does have some faint expiratory wheezing throughout his lung sewell. He denies any cough or shortness of breath. Exam is otherwise unremarkable. I ordered blood work, chest x-ray, Covid test, mono screen, and strep screen. 06/02/21 13:17 His work-up is unremarkable. Covid, strep, and mono were negative. Blood work is unremarkable. Chest x-ray shows no evidence of pneumonia. Results discussed with patient. He is likely suffering from viral illness. Recommend rest and increase hydration. I will provide a note off from work for the next 2 days. Discussed return precautions. Discharge instructions as documented. Departure - Departure Time of Disposition: 13:19 Disposition: Home, Self-Care 01 Condition: Good Clinical Impression: Viral illness - Discharge Information *PRESCRIPTION DRUG MONITORING PROGRAM REVIEWED*: No *COPY OF PRESCRIPTION DRUG MONITORING REPORT IN PATIENT ASHLEY: No Instructions: Viral Illness, Adult Referrals: PCP,None [Primary Care Provider] - Forms: ED Department Discharge, ED Return to Work/School Form Additional Instructions: You were seen in the emergency department today for increased fatigue, difficulty concentrating, and sore throat, as well as nausea, vomiting, diarrhea last week. Work-up included blood work, strep test, Covid test, mono test, and chest x-ray. Results to work-up were found to be normal. As we discussed, you are likely suffering from viral illness. Recommend rest and increase fluid hydration. You been provided a note off from work. If your symptoms should worsen in any way, please not hesitate to return for reevaluation.
--- NOTE | 2021-06-02 13:46 | CR ---
Chest: Portable view of the chest was obtained. Comparison: Prior chest x-ray of 05/28/21. Heart size and mediastinum are normal. Lungs are clear with no acute parenchymal change. No acute osseous abnormality is appreciated. Impression: 1. Nothing acute is seen on portable chest x-ray. Diagnostic code #1
== END 2021-06-02 13:35 | disposition home or self-care (01) ==
LOC: JD.ED 10:33
DX: B34.9 Viral infection, unspecified (principal); Z72.0 Tobacco use; Z20.822 Contact with and (suspected) exposure to COVID-19
CPT/HCPCS: 36415; 71045; 71045-26; 80053; 85025; 86140; 86308; 87651-QW; 99282; 99284-25; U0002

== ENCOUNTER 2022-04-11 19:50 | Emergency (ER) | payer BC ==
[2022-04-11 20:59] VITALS: BP 126/83; PULSE 107
== END 2022-04-11 21:10 | disposition left against medical advice (07) ==
LOC: JD.ED 19:50
DX: F99 Mental disorder, not otherwise specified (principal); Z53.21 Procedure and treatment not carried out due to patient leaving prior to being seen by health care provider

== ENCOUNTER 2022-04-14 14:33 | Emergency (ER) | payer BC, MEDICAID ==
[2022-04-14] MEDS ORDERED: Haloperidol 5 MG Tab PO ONE (14:43)
[2022-04-14] MEDS ORDERED: Lidocaine 1% 10 ML MDV INJECT ONE (14:58)
[2022-04-14] MEDS ORDERED: Nicotine 21 MG/24 Hr Patch TRDERM ONE (15:00)
[2022-04-14] MEDS ORDERED: LORazepam 1 MG Tab PO ONE (15:03)
[2022-04-14 15:52] LABS: ACETAMINOPHEN 0 ug/mL (10-30); ESTIMATED GFR 69 mL/min (>60)
[2022-04-14] MEDS ORDERED: LORazepam 0.5 MG Tab PO ONE (16:14)
[2022-04-14 17:59] VITALS: PULSE 108
[2022-04-14 19:19] VITALS: BP 144/100
== END 2022-04-14 17:00 | disposition home or self-care (01) ==
LOC: JD.ED 14:33
DX: F41.9 Anxiety disorder, unspecified (principal); S61.512A Laceration without foreign body of left wrist, initial encounter; R44.0 Auditory hallucinations; F60.0 Paranoid personality disorder; Z20.822 Contact with and (suspected) exposure to COVID-19; W26.8XXA Contact with other sharp object(s), not elsewhere classified, initial encounter
CPT/HCPCS: 12001; 36415; 80053; 80143; 80179; 80306; 80307; 84443; 85007; 85027; 87635; 93005; 99285; A9270; U0002